=== PATIENT | female | born 1950 | race Caucasian/White ===

== ENCOUNTER → 2019-10-28 11:08 | Outpatient (CLI) | payer MEDICARE, SELFPAY ==
--- NOTE | ~2019-10-28 | CT_ITS ---
EXAMINATION: CT lumbar spine wo [facility] EXAM DATE: 10/28/2019 11:37 INDICATION: Radiculopathy, lumbar region. States lifting injury 2 weeks ago. TECHNIQUE: Spiral CT of the lumbar spine was performed without contrast. Axial, coronal and sagittal images were reviewed. The dose-length product (DLP) for this examination was 768.02 mGy-cm. The e xposure was tailored according to patient size (auto mA exposure control), and iterative reconstructi on (ASIR) was used as additional dose reduction technique. Correlation is made to lumbar x-ray same d ate. FINDINGS: Correlating with a prior lumbar x-ray from 02/24/2019, there has been interval development o f a compression fracture at the inferior endplate of L3 with mild to moderate loss of this vertebral body height centrally. There is mild sclerosis of the fracture line, it appears to be subacute. Verte bral body heights are otherwise maintained. There is moderate to severe loss of the L5-S1 disc height , moderate at L4-5 and mild to moderate at L3-4. Mild upper lumbar disc disease. No spondylolysis. Th ere is 3 mm anterolisthesis L3 on L4. The vertebral bodies are otherwise aligned. Paraspinal soft t issue is unremarkable. Sacral nerve stimulator entering on the left. Level by level evaluation: T12-L1: Disc does not extend beyond the endplate margin. Facet arthropathy: Mild. Neural foraminal stenosis: No stenosis. Central canal stenosis: No stenosis. L1-L2: There is a mild diffuse disc bulge. Facet arthropathy: Mild. Neural foraminal stenosis: Mild bilateral. Central canal stenosis: Mild. L2-L3: There is a moderate diffuse disc bulge. Facet arthropathy: Moderate. Neural foraminal stenosis: Mild to moderate left, mild right. Central canal stenosis: Moderate. L3-L4: There is a moderate diffuse disc bulge. Facet arthropathy: Severe . Ligamentum flavum enlargement. Neural foraminal stenosis: Moderate bilateral. Central canal stenosis: Moderate to severe. L4-L5: There is a moderate diffuse disc bulge. Facet arthropathy: Severe. Neural foraminal stenosis: Moderate to severe left, moderate right. Central canal stenosis: Moderate. L5-S1: There is a mild to moderate diffuse disc bulge. Facet arthropathy: Severe left, moderate to severe right. Neural foraminal stenosis: Moderate to severe bilateral. Central canal stenosis: Mild. IMPRESSION: 1. L3 subacute appearing mild to moderate compression fracture. 2. L3-4 grade 1 anterolisthesis, moderate to severe central canal stenosis. 3. L5-S1 moderate to severe neural foraminal stenosis. 4. Lesser spondylosis above. Reviewed, dictated and finalized at location B. COMPOSITOR
--- NOTE | ~2019-10-28 | XR_ITS ---
EXAMINATION: XR lumbar spine 6V w bending EXAM DATE: 10/28/2019 11:37 INDICATION: States lumbar radiculopathy. Injury 2 weeks ago. TECHNIQUE: Lumber spine frontal, lateral, bilateral oblique projections. Coned down frontal and lat eral L5-S1 lumbar projections for interpretation. Additional lateral flexion and lateral extension p rojections obtained. Comparison is made to prior examination from 02/24/2019. FINDINGS: Interval development of mild to moderate compression fracture inferior endplate of L3. Ther e is 3 mm anterolisthesis at this level on all the lateral projections. There is moderate to severe l oss of the L5-S1 disc height, moderate at L4-5 and mild to moderate at L3-4. There is advanced mid an d lower lumbar facet arthropathy. There is a sacral nerve stimulator. There are cholecystectomy clips . No spondylolysis. IMPRESSION: 1. Interval development of mild L3 compression fracture. 2. L3-4 grade 1 anterolisthesis. 3. Advanced arthropathy. Reviewed, dictated and finalized at location B. KER HAND
== END ==
PROVIDERS: Visit Provider Physician Assistant Medical
DX: M54.16 Radiculopathy, lumbar region (principal)
CPT/HCPCS: 72114; 72131

== ENCOUNTER 2019-10-28 14:50 | Emergency (ER) | payer MEDICARE, SELFPAY ==
[2019-10-28 15:02] VITALS: BP 100/68; PULSE 84; RESP 16; TEMP 36.9; O2SAT 100
--- NOTE | 2019-10-28 15:26 | PC.NURSE ---
1518 vegetable cutter at bedside to suture.
--- NOTE | 2019-10-28 15:32 | ED.WOUNDLAC ---
HPI - Wound/Laceration General Chief Complaint: Wound/Laceration Stated Complaint: Laceration on finger Time Seen by Provider: 10/28/19 15:17 Source: patient and family Mode of arrival: ambulatory Limitations: no limitations History of Present Illness HPI narrative: Patient presents today with lacerations to her left third and fourth fingers. She cut her hand with a kitchen knife while cutting onions at home just prior to arrival. Reports some tingling and throbbing in her fingers. She currently rates her pain 5/10. She has tried no iafz-vfj-obkfrsm interventions prior to arrival. Related Data Home Medications Medication Instructions Recorded Confirmed Calcium with Vitamin D 10/28/19 PreserVision AREDS-2 10/28/19 Vitamin C 10/28/19 bupropion HCl mg PO 10/28/19 divalproex PO 10/28/19 gabapentin 10/28/19 levothyroxine 10/28/19 lisinopril 10/28/19 mecobalamin (vitamin B12) 10/28/19 multivitamin 10/28/19 quetiapine 10/28/19 10/28/19 Allergies Allergy/AdvReac Type Severity Reaction Status Date / Time NSAIDS (Non-Steroidal AdvReac Other Verified 10/28/19 15:27 Anti-Inflamma Review of Systems Review of Systems: Narrative: CONSTITUTIONAL: Denies body aches, fever, chills, or sweats. EYES: Denies visual changes, redness, or discharge. ENT: Denies rhinorrhea, congestion, sore throat, or otalgia. CARDIOVASCULAR: Denies chest pain, palpitations, or edema. RESPIRATORY: Denies cough or dyspnea. GASTROINTESTINAL: Denies abdominal pain, nausea, vomiting, or diarrhea. GENITOURINARY: Denies dysuria or hematuria. SKIN: Denies rash, itching. + Finger lacerations MUSCULOSKELETAL: Denies back pain, joint pain, or myalgia. NEUROLOGIC: Denies headache, numbness, tingling, or weakness. PSYCH: Denies depression or anxiety. [facility] Past Medical History Medical History (Updated 10/28/19 @ 15:38 by Telma Gramajo, NÉSTOR, BC) History of diabetes mellitus Hypertension Surgical History Surgical History (Updated 10/28/19 @ 15:38 by Telma Gramajo, NÉSTOR, BC) History of gastric bypass Family History Family History (Updated 12/08/17 @ 10:03 by DOCTOR UNKNOWN) Father Diabetes mellitus Mother Hypertension Family history of elevated blood lipids Social History Social History Smoking status: Former smoker Smoking end date: 09/01/92 Alcohol intake: never Comments At time of signature, I have reviewed and agree with nursing past medical, surgical, social and family history unless otherwise noted. Please see nursing chart for further information. There is no relevant family history pertinent to the presenting complaint Exam Narrative: Exam Narrative: GENERAL: Well-appearing, well-nourished, and in no acute distress. HEAD: Normocephalic, atraumatic. EYES: EOMI. No redness or drainage. Conjunctivae normal. ENT: Mucous membranes pink and moist. NECK: Normal AROM. CHEST: No respiratory distress. EXTREMITIES: Left hand: 0.5 cm full-thickness linear laceration to the left third PIP, volar aspect. Distal sensation intact. Capillary refill normal. Full AROM against resistance. 1 cm full-thickness linear laceration to the fourth PIP, volar aspect. Distal sensation intact. Capillary refill normal. Full AROM against resistance. No active bleeding. SKIN: Warm, dry, no rash. NEURO: No focal deficits. Alert and oriented x3. Gait steady. PSYCH: Normal affect. No signs of depression or anxiety. Course Vital Signs Vital signs: Vital Signs Temperature 98.4 F 10/28/19 15:02 Pulse Rate 84 10/28/19 15:02 Respiratory Rate 16 10/28/19 15:02 Blood Pressure 100/68 10/28/19 15:02 Pulse Oximetry 100 10/28/19 15:02 Temperature 98.4 F 10/28/19 15:02 Pulse Rate 84 10/28/19 15:02 Respiratory Rate 16 10/28/19 15:02 Blood Pressure 100/68 10/28/19 15:02 Pulse Oximetry 100 10/28/19 15:02 Reviewed Procedures Laceration Laceration 1: D
== END 2019-10-28 15:42 | disposition home or self-care (01) ==
PROVIDERS: Emergency Provider Nurse Practitioner; PCP Family Medicine
DX: S61.215A Laceration without foreign body of left ring finger without damage to nail, initial encounter (principal); W26.0XXA Contact with knife, initial encounter; Z87.891 Personal history of nicotine dependence; E11.9 Type 2 diabetes mellitus without complications; I10 Essential (primary) hypertension
CPT/HCPCS: 12001; 99212; G0463

== ENCOUNTER 2020-01-03 14:00 | Outpatient (CLI) | payer MEDICARE, SELFPAY ==
--- NOTE | ~2020-01-03 | XR_ITS ---
EXAMINATION: XR sacrum coccyx min 2V EXAM DATE: 01/03/2020 14:22 INDICATION: Overactive bladder. TECHNIQUE: Frontal and lateral projections of the sacrum. Steep frontal projection of sacrum. Corre lation was made with pelvic x-ray 05/20/2019. FINDINGS: There is been interval insertion of a sacral neural stimulator device, likely entering at S3-4 on the left side. There is moderate disc disease L4-5 and L5-S1. There is mild to moderate sacro iliac and hip primary osteoarthritis. Calcifications in the pelvis are believed to be phleboliths. Th ere are no acute fractures identified. IMPRESSION: 1. Sacral neural stimulator overlies expected position. 2. Hip, sacroiliac osteoarthritis. Reviewed, dictated and finalized at location A.
== END 2020-01-03 14:01 | disposition home or self-care (01) ==
PROVIDERS: PCP Family Medicine; Visit Provider Urology
DX: N32.81 Overactive bladder (principal); M16.0 Bilateral primary osteoarthritis of hip; Z96.0 Presence of urogenital implants
CPT/HCPCS: 72220

== ENCOUNTER 2020-01-17 07:07 | Outpatient (CLI) | payer MEDICARE, SELFPAY ==
--- NOTE | ~2020-01-17 | XR_ITS ---
XR sacrum coccyx min 2V DATE: 01/17/2020 07:30 INDICATION: Overactive bladder. Device placement. TECHNIQUE: 3 views COMPARISON: 01/03/2020 sacrum coccyx FINDINGS: Again noted is a right-sided neurostimulator device overlying the right upper buttock area, with lead extending posteroanteriorly through a left sacral neural foramen. No fracture or bone destruction of the sacrum or coccyx is evident. There is degenerative disc disease of moderate degree at L3-4 with suggestion of grade 1 anterolisthe sis r There is moderately severe degenerative disease at L4-5 and severe degenerative disease at L5-S1. The sacroiliac joints are intact. IMPRESSION: Sacral neural stimulator device on the right, with left sacral neural foraminal lead Multilevel degenerative disc disease of the lumbar and lumbosacral spine Reviewed, dictated and finalized at location A. IMPRESSION: Sacral neural stimulator device on the right, with left sacral neur al foraminal lead Multilevel degenerative disc disease of the lumbar and lumbosacral spine
== END 2020-01-17 07:08 | disposition home or self-care (01) ==
LOC: ANHIMG 07:09
PROVIDERS: PCP Family Medicine; Visit Provider Urology
DX: N32.81 Overactive bladder (principal); M51.36 Other intervertebral disc degeneration, lumbar region; Z96.82 Presence of neurostimulator
CPT/HCPCS: 72220

== ENCOUNTER 2020-02-04 15:48 | Outpatient (CLI) | payer MEDICARE, SELFPAY ==
--- NOTE | ~2020-02-04 | US_ITS ---
US venous doppler [facility] DATE: 02/04/2020 16:17 INDICATION: Localized edema of the left lower extremity TECHNIQUE: Real-time and color flow imaging and Doppler analysis of the veins of the left lower extre mity COMPARISON: 06/04/2016 venous duplex examination of both lower extremities FINDINGS: The left greater saphenous vein is patent. There is spontaneous and phasic flow and normal augmentation and color flow signal and normal compression of the left common femoral, femoral and pop liteal veins. The peroneal and posterior calf veins are not well demonstrated. There is an approximately 12 x 35 x 27 mm left popliteal cyst. IMPRESSION: Limited examination; the peroneal and posterior tibial veins are not well demonstrated. O therwise no evidence of deep venous thrombosis Left popliteal cyst Reviewed, dictated and finalized at Location A. Reviewed, dictated and finalized at location A. IMPRESSION: Limited examination; the peroneal and posterior tibial veins are no t well demonstrated. Otherwise no evidence of deep venous thrombosis Left popliteal cyst
== END 2020-02-04 15:49 | disposition home or self-care (01) ==
PROVIDERS: PCP Family Medicine; Visit Provider Family Medicine
DX: M79.89 Other specified soft tissue disorders (principal); M71.22 Synovial cyst of popliteal space [Baker], left knee
CPT/HCPCS: 93971

== ENCOUNTER 2020-02-24 15:04 | Outpatient (CLI) | payer MEDICARE, SELFPAY ==
--- NOTE | ~2020-02-24 | MM_ITS ---
EXAMINATION: MM screening rodriguez BI w mir HISTORY: Screening mammogram TECHNIQUE: Craniocaudal and mediolateral oblique 3-D tomosynthesis images were obtained and synthetic 2-D images were generated. CAD analysis was submitted and interpreted. COMPARISON: 02/19/2019, 02/16/2018, 12/09/2016 bilateral digital screening mammogram examinations BREAST PARENCHYMAL COMPOSITION: There are scattered areas of fibroglandular density. FINDINGS: There is no evidence of suspicious mass, calcification, or architectural distortion to sugg est malignancy in either breast. There has been no suspicious interval change. IMPRESSION: 1. No mammographic evidence of malignancy. 2. Recommend routine screening mammography in one year. BI-RADS Category 1: Negative Reviewed, dictated and finalized at location A.
--- NOTE | ~2020-02-24 | CT_ITS ---
EXAMINATION: CT thoracic spine wo con EXAM DATE: 02/24/2020 16:04 INDICATION: Thoracic radiculopathy. TECHNIQUE: Spiral CT thoracic spine wo con was performed without contrast. Axial, coronal and sagit cheng images were reviewed. The dose-length product (DLP) for this examination was 416.99 mGy-cm. The exposure was tailored according to patient size (auto mA exposure control), and iterative reconstruc tion (ASIR) was used as additional dose reduction technique. There is no prior study for comparison. FINDINGS: Gastroesophageal junction surgical changes. Mild to moderate loss of the midthoracic disc h eights. Small to moderate-sized mid and lower thoracic endplate osteophytes. Vertebral body heights r elatively well-maintained. Mild mid thoracic kyphosis. No endplate erosive change. The vertebral bodi es are aligned in the AP dimension. Lower cervical fusion hardware. Mild to moderate bilateral neural foraminal stenosis at T8-9 and T9-10. Central canal appears widely patent. Mild to moderate thoracic facet arthropathy. IMPRESSION: Mild to moderate thoracic spondylosis. No acute findings. Reviewed, dictated and finalized at location B.
== END 2020-02-24 15:05 | disposition home or self-care (01) ==
PROVIDERS: PCP Family Medicine; Referring Provider Family Medicine; Visit Provider Nurse Practitioner Adult Health
DX: Z12.31 Encounter for screening mammogram for malignant neoplasm of breast (principal); M47.24 Other spondylosis with radiculopathy, thoracic region
CPT/HCPCS: 72128; 77063; 77067

== ENCOUNTER 2020-03-03 11:55 | Emergency (ER) | payer MEDICARE, SELFPAY ==
[2020-03-03 12:04] VITALS: BP 104/61; PULSE 59; RESP 16; TEMP 37.1; O2SAT 98
--- NOTE | 2020-03-03 12:23 | ED.GENADULT ---
HPI - General Adult General Chief complaint: Ear Stated complaint: Eaar/Nose/Throat Time Seen by Provider: 03/03/20 12:23 Source: patient and RN notes reviewed Mode of arrival: ambulatory Limitations: no limitations History of Present Illness HPI narrative: 69-year-old female complains of bilateral otalgia, pressure, and clogged feeling for 1 day. Palma says she cleaned bilateral ears with a Q-tip on 03/02/20 and noticed bloody drainage from [id number] out RT ear none from LT. Tylenol and Ibuprofen with some relief. Denies tinnitus, itching, or decrease hearing. History of Allergies, currently taking Zyretc daily. No facial swelling. Intermittent rhinorrhea and nasal congestion. No high fevers, sore throat, drooling, neck or throat swelling. No chest pain or shortness of breath. Denies vomiting and abdominal pain. Tolerating liquids well. LMP postmenopausal. Remains active. The patient reports she have not been diagnosed with COVID-19. The patient reports she is not waiting for the results of a COVID-19 lab test. The patient reports she do not have fever, chills, weakness, fatigue, myalgia, or facial swelling. The patient reports she do not have a new or worsening cough or shortness of breath. Denies chest pain. The patient reports she do not have any sore throat, nausea, and diarrhea. Denies recent traveling. Denies concerns for COVID-19 or exposures been home with limited outdoor exposure except for essential household needs and return home. At this time, patient is not suspected of having COVID-19. Some parts of this dictation were generated by voice recognition software and may contain typographical and/or grammatical inaccuracies. Related Data Home Medications Medication Instructions Recorded Confirmed calcium 600 mg-D3 800 unit-mag11 1 tablet PO DAILY 11/02/19 02/10/20 50 nm-rbez-nsufgn-jb-s.borat tablet cetirizine 10 mg tablet 10 mg PO DAILY tablet 11/02/19 02/10/20 clonazepam 0.5 mg tablet 0.5 mg PO TID tablet 11/02/19 02/10/20 ibuprofen 600 mg tablet 600 mg PO TID PRN 11/02/19 02/10/20 meclizine 25 mg tablet 25 mg PO BID PRN 11/02/19 02/10/20 vit C 250 mg-E 200 unit-zinc 40 1 tablet PO BID 11/02/19 02/10/20 mg-copper 1 ih-xgyibn-fjlbak capsule aripiprazole 5 mg tablet 5 mg PO DAILY 01/19/20 02/10/20 divalproex 500 mg tablet,extended 500 mg PO TID tablet 01/19/20 02/10/20 release 24 hr oxybutynin chloride 10 mg 10 mg PO DAILY 01/19/20 02/10/20 tablet,extended release 24 hr duloxetine mg PO 03/03/20 Allergies Allergy/AdvReac Type Severity Reaction Status Date / Time NSAIDS (Non-Steroidal AdvReac Other Verified 02/04/20 14:36 Anti-Inflamma Review of Systems Review of Systems: Narrative: CONSTITUTIONAL: Denies fever, chills, sweats. EYES: Denies visual changes, redness, discharge. ENT: Complains of rhinorrhea, congestion, bilateral bilateral otalgia, pressure, RT blood drainage (subsided), and clogged feeling. Denies sore throat. CARDIOVASCULAR: Denies chest pain, palpitations, edema. RESPIRATORY: Denies dyspnea, wheezing, cough. GASTROINTESTINAL: Denies abdominal pain, nausea, vomiting, diarrhea. GENITOURINARY: Denies dysuria, hematuria, abnormal discharge. SKIN: Denies rash or itching. MUSCULOSKELETAL: Denies acute back pain, joint pain, or myalgia. NEUROLOGIC: Denies numbness or focal weakness. PSYCHIATRIC: Denies anxiety or depression. All systems reviewed & are unremarkable except as noted in HPI and below. [facility] Past Medical History Medical History (Updated 03/04/20 @ 00:00 by Background Daemon) Abnormal colonoscopy 7.16.19: polyps/ repeat in 5 years Allergic rhinitis Bipolar disorder, current episode depressed, mild Chronic bilateral low back pain with sciatica Chronic or old strain of lumbosacral spine Cystocele Degeneration of cervical intervertebral disc Diverticulosis Hypothyroid Mild persistent asthma, uncomplicated Mixed hyperlipidemia Nicotine dependence,
== END 2020-03-03 12:56 | disposition home or self-care (01) ==
PROVIDERS: Emergency Provider Nurse Practitioner Family; PCP Family Medicine
DX: H74.8X1 Other specified disorders of right middle ear and mastoid (principal); J01.90 Acute sinusitis, unspecified; J00 Acute nasopharyngitis [common cold]; E78.00 Pure hypercholesterolemia, unspecified; I10 Essential (primary) hypertension; E11.9 Type 2 diabetes mellitus without complications; Z98.84 Bariatric surgery status
CPT/HCPCS: 99213; G0463

== ENCOUNTER → 2020-06-12 12:56 | Outpatient (CLI) | payer MEDICARE, SELFPAY ==
--- NOTE | ~2020-06-12 | US_ITS ---
EXAMINATION: US thyroid DATE: 06/12/2020 13:15 INDICATION: Nontoxic single thyroid nodule TECHNIQUE: Multiple ultrasound images of the thyroid were obtained. COMPARISON: 06/07/2019 FINDINGS: The right thyroid lobe measures 4.9 x 2.0 x 1.8 cm. The left thyroid lobe measures 4.6 x 1.7 x 1.5 c m. No significant interval change in a 1.3 cm wider than tall solid isoechoic nodule with smooth mar gins and without echogenic foci in the mid left thyroid. (TI-RADS 3, mildly suspicious , FNA if >=2.5 cm, annual followup is >1.5 cm). There is a second wider than tall solid isoechoic nodule with ghislaine h margins and without echogenic foci at the inferolateral left thyroid lobe, also TI-RADS 3. No signi ficant interval change in a 10 mm solid slightly hypoechoic wider than tall nodule with smooth margin s at the deep right thyroid lobe. (TI-RADS 4, moderately suspicious , FNA if >=1.5 cm, annual followu p is >1 cm). Subtle 1.3 cm wider than tall isoechoic solid nodule with indistinct margins and without echogenic foci in the mid right thyroid, TI-RADS 3. There is normal echotexture, echogenicity and va scular flow throughout the thyroid gland. IMPRESSION: 1. A few small bilateral TI RADS 3 and TI RADS 4 nodules, none meeting size criteria for biopsy. Alexx mmend repeat one-year follow-up ultrasound based upon the 1 cm TI RADS 4 nodule. Reviewed, dictated and finalized at location B. IMPRESSION: 1. A few small bilateral TI RADS 3 and TI RADS 4 nodules, none meeting size cri teria for biopsy. Recommend repeat one-year follow-up ultrasound based upon the 1 cm TI RADS 4 nodule.
== END ==
PROVIDERS: PCP Family Medicine; Visit Provider Family Medicine
DX: E04.1 Nontoxic single thyroid nodule (principal)
CPT/HCPCS: 76536

== ENCOUNTER 2020-07-03 12:03 | Outpatient (CLI) | payer MEDICARE, SELFPAY ==
[2020-07-03 13:02] LABS: Basophils Absolute Auto 0.1 K/mm3 (0.0-0.1); Basophils Percent Auto 1.2 % (0.2-1.2); Eosinophils Absolute Auto 0.3 K/mm3 (0-0.3); Eosinophils Percent Auto 5.9 % (0-4.4); Hematocrit 41.4 % (37.0-47.0); Immature Granulocyte Absolute 0.01 K/mm3 (0.00-0.031); Immature Granulocyte Percent A 0.2 % (0-0.5); Lymphocytes Absolute Auto 2.05 K/mm3 (0.9-3.2); Lymphocytes Percent Auto 35.5 % (18.3-44.2); Mean Corpuscular HGB Conc 33.8 g/dl (32-36); Mean Corpuscular Hemoglobin 30.9 pg (26-34); Mean Corpuscular Volume 91.4 fl (80-100); Mean Platelet Volume 9.6 fl (7.4-10.4); Monocytes Absolute Auto 0.4 K/mm3 (0.1-0.6); Monocytes Percent Auto 6.7 % (2.6-8.5); Neutrophils Absolute Auto 2.9 K/mm3 (1.3-6.7); Neutrophils Percent Auto 50.5 % (45.5-73.1); Platelet Count Result 214 k/mm3 (150-375); Red Blood Count 4.53 M/mm3 (4.2-5.4); Red Cell Distribution Width 14.6 % (11.5-14.5); White Blood Count 5.8 K/mm3 (4.5-10.0)
[2020-07-03 13:05] LABS: Add Urine Microscopic? YES; Appearance Urine Clear (Clear); Bilirubin Urine Negative (Negative); Blood Urine Negative (Negative); Color Urine Straw (Yellow); Glucose Urine UA Negative (Negative); Ketones Urine Negative (Negative); Leukocyte Esterase Ur Negative LEU/UL (Negative); Nitrate Urine Negative (Negative); Protein Urine Negative (Negative); RBC Urine 0-2 /hpf (0-2); Specific Grav Ur 1.009 (1.001-1.035); Urobilinogen Urine Negative mg/dL (<2.0); WBC Urine 0-3 /hpf
[2020-07-03 13:13] LABS: Anion Gap 1 mmol/L (8-16); Blood Urea Nitrogen 17 mg/dL (7-17); Calcium 9.6 mg/dL (8.4-10.2); Carbon Dioxide 38 mmol/L (22-30); Chloride 99 mmol/L (98-107); Creatine Kinase 39 U/L (30-135); Estimated Glomerular Filt Rate > 60; Glucose 89 mg/dL (65-105); Sodium 138 mmol/L (137-145)
--- NOTE | 2020-07-03 13:23 | ECG_ITS ---
Measurements Intervals [place] Rate: 57 P: 59 [place]: 171 QRS: -5 QRSD: 85 T: 11 QT: 422 QTc: 412 Interpretive Statements SINUS BRADYCARDIA BASELINE ARTIFACT- II, III, AVR, AVL, AVF BORDERLINE ECG Electronically Signed On 07-03-2020 13:37:28 [employer] by Selvin Carson D.O.
[2020-07-03 13:33] LABS: Erythrocyte Sedimentation Rate 5 mm/hr (0-20)
== END 2020-07-03 12:04 | disposition home or self-care (01) ==
PROVIDERS: PCP Family Medicine; Visit Provider Nurse Practitioner Adult Health
DX: Z01.818 Encounter for other preprocedural examination (principal); R94.31 Abnormal electrocardiogram [ECG] [EKG]
CPT/HCPCS: 36415; 80048; 81001; 82550; 85025; 85652; 93005

== ENCOUNTER → 2020-11-29 12:58 | Outpatient (CLI) | payer MEDICARE, SELFPAY ==
--- NOTE | ~2020-11-29 | US_ITS ---
EXAMINATION: US thyroid EXAM DATE: 11/29/2020 13:13 INDICATION: E04.1 - Nontoxic single thyroid nodule. TECHNIQUE: Multiple grayscale and Doppler images of the thyroid were obtained (by a technologist who performed the scan) and subsequently reviewed. Individual nodules and recommendations may be reporte d in accordance with TI-RADS system as designated by the 2017 ACR White Paper TI-RADS committee. Comp arison is made to prior examination from 06/12/2020, 06/07/2019. FINDINGS: The right thyroid lobe measures 4.5 x 1.6 x 1.6 cm, the left measuring 4.6 x 1.7 x 1.7 cm. Relatively homogeneous thyroid echogenicity. There are several thyroid nodules. Largest left thyroid lobe nodule 1.2 x 0.9 x 1.0 cm, unchanged in size. Largest right thyroid lobe no dule measures 1.0 x 0.7 x 0.6 cm, also unchanged in size compared to 2019. IMPRESSION: Small thyroid nodules, stable. Most likely benign but recommend one-year follow-up ultras ound. Reviewed, dictated and finalized at location A. IMPRESSION: Small thyroid nodules, stable. Most likely benign but recommend one -year follow-up ultrasound.
== END ==
PROVIDERS: PCP Family Medicine; Visit Provider Physician Assistant Medical
DX: E04.2 Nontoxic multinodular goiter (principal)
CPT/HCPCS: 76536

== ENCOUNTER 2020-12-15 12:48 | Outpatient (CLI) | payer MEDICARE, SELFPAY ==
--- NOTE | 2020-12-15 13:29 | ECHO_ITS ---
Patient Info Name: Palma Freire Age: 70 years : 1950 Gender: Female Ht: 67 in Wt: 174 lbs BSA: 1.95 m2 HR: 76 bpm BP: 124 / 71 mmHg Technical Quality: Good Exam Date: 12/15/2020 1:33 PM Exam Location: [facility] Patient Status: Outpatient Admit Date: 12/15/2020 Staff Ordering Physician: Franklin Chilel PA-C Human Resource Analyst: Davis Contreras RDCS, RT Attending Provider: Franklin Chilel PA-C Referring Physician: Ranjana SUAZO; Exam Type: CA echo doppler color flow Study Info Indications R60.0 - Localized edema Complete two-dimensional, color flow and Doppler transthoracic echocardiogram is performed. Strain analysis performed. Summary 1. Complete two-dimensional, color flow and Doppler transthoracic echocardiogram is performed. 2. Left ventricular chamber dimension is mildly enlarged. 3. Left ventricular systolic function is normal, estimated at 60-65%. 4. The left ventricular diastolic function is grade I diastolic dysfunction. 5. E/e' 7 is not elevated. 6. Global longitudinal strain is normal at -20.6%. 7. Left atrial chamber dimension is mildly enlarged. 8. There is mild aortic valve sclerosis. 9. There is trace mitral valve regurgitation. 10. There is mild tricuspid valve regurgitation. 11. No pulmonary hypertension, estimated pulmonary arterial systolic pressure is 35 mmHg. 12. Small atheroma in anterior and posterior aortic root. 13. Dilated inferior vena cava with >50% collapse upon inspiration consistent with elevated right atrial pressure, 10 mmHg. Left Ventricle E/e' 7 is not elevated. Global longitudinal strain is normal at -20.6%. Left ventricular chamber dimension is mildly enlarged. Left ventricular systolic function is normal, estimated at 60-65%. The left ventricular diastolic function is grade I diastolic dysfunction. Right Ventricle Right ventricular chamber dimension is normal. Right ventricular systolic function is normal. Left Atria Left atrial chamber dimension is mildly enlarged. Right Atria Right atrial chamber dimension is normal. Aortic Valve The aortic valve is trileaflet. There is mild aortic valve sclerosis. There is no aortic valve stenosis. There is no aortic valve regurgitation. Pulmonic Valve There is no pulmonic regurgitation. Mitral Valve There is no mitral valve stenosis. There is trace mitral valve regurgitation. Tricuspid Valve There is mild tricuspid valve regurgitation. No pulmonary hypertension, estimated pulmonary arterial systolic pressure is 35 mmHg. Pericardium/Pleural There is no pericardial effusion. Inferior Vena Cava Dilated inferior vena cava with >50% collapse upon inspiration consistent with elevated right atrial pressure, 10 mmHg. Aorta Small atheroma in anterior and posterior aortic root. The aortic root size at the sinus of Valsalva is normal. Left Ventricular Outflow Tract Name Value Normal LVOT 2D LVOT Diameter 2.1 cm LVOT Doppler LVOT Peak Gradient 3 mmHg LVOT Mean Gradient 2 mmHg LVOT VTI 22 cm
== END 2020-12-15 12:49 | disposition home or self-care (01) ==
PROVIDERS: PCP Family Medicine; Visit Provider Physician Assistant Medical
DX: R60.9 Edema, unspecified (principal); I36.1 Nonrheumatic tricuspid (valve) insufficiency; I35.1 Nonrheumatic aortic (valve) insufficiency
CPT/HCPCS: 93306

== ENCOUNTER → 2021-01-22 17:50 | Outpatient (CLI) | payer MEDICARE, SELFPAY ==
--- NOTE | ~2021-01-22 | DEXA_ITS ---
Bone Density Report Name: Palma Freire Age: 70 Sex: Female Ethnicity: White Date of : 1950 Indication: postmenopausal; screening for osteoporosis; height loss; prior fracture; hysterectomy; Referring Provider: NATHAN ALAN Study: Bone densitometry was performed. Exam Date: January 22, 2021 Accession number: [id number] Bone Density: Region BMD T-score Z-score Classification AP Spine (L1, L2, L4) 0.982 -0.5 1.5 Normal Femoral Neck (Left) 0.653 -1.8 -0.1 Osteopenia Total Hip (Left) 0.744 -1.6 -0.2 Osteopenia Femoral Neck (Right) 0.606 -2.2 -0.5 Osteopenia Total Hip (Right) 0.683 -2.1 -0.7 Osteopenia Total Hip Mean 0.714 -1.9 -0.5 Osteopenia World Health Organization criteria for BMD impression classify patients as: Normal (T-score at or above -1.0), Osteopenia (T-score between -1.0 and -2.5), or Osteoporosis (T-score at or below -2.5). 10-year Fracture Risk: FRAX not reported because: Prior hip or vertebral fracture Previous Exams: Region Exam Age BMD T-score BMD Change BMD Change Date g/cm2 vs Baseline vs Previous AP Spine(L1, L2, L4) 01/22/2021 70 0.982 -0.5 -0.065 -0.078* 07/21/2018 67 1.060 0.2 0.012 -0.135* 07/12/2013 62 1.195 1.5 0.147 0.140* 06/10/2009 58 1.055 0.2 0.007 0.007 07/14/2006 55 1.047 0.1 Total Hip(Left) 01/22/2021 70 0.744 -1.6 -0.146 -0.214* 07/21/2018 67 0.958 0.1 0.068 -0.145* 07/12/2013 62 1.103 1.3 0.214 0.175* 06/10/2009 58 0.928 -0.1 0.038 0.038 07/14/2006 55 0.890 -0.4 Total Hip(Right) 01/22/2021 70 0.683 -2.1 -0.217 -0.290* 07/21/2018 67 0.973 0.3 0.073 -0.039* 07/12/2013 62 1.012 0.6 0.112 0.058* 06/10/2009 58 0.954 0.1 0.054 0.054 07/14/2006 55 0.900 -0.3 *Denotes significance at 95% confidence level, LSC for AP Spine = 0.022 g/cm2, LSC for Total Hip = 0.027 g/cm2 Clinical Information Provided by Patient: Have had a previous hip or vertebral fracture Has had a low trauma fracture Has used the following medications: Vitamin D, Calcium, MTV, Levothyroxine Has the following medical conditions: Hysterectomy Patient maximum height was 70.5 Menopause Age: 57 No regular weight bearing exercise Drinks caffeinated beverages Onset of menses at age 16 Number of children 3 -------
== END ==
PROVIDERS: Visit Provider Family Medicine
DX: Z78.0 Asymptomatic menopausal state (principal); M85.851 Other specified disorders of bone density and structure, right thigh; M85.852 Other specified disorders of bone density and structure, left thigh
CPT/HCPCS: 77080

== ENCOUNTER → 2021-02-26 12:58 | Outpatient (CLI) | payer MEDICARE, SELFPAY ==
--- NOTE | ~2021-02-26 | MM_ITS ---
EXAMINATION: MM screening [facility] BI w mir HISTORY: Screening TECHNIQUE: Craniocaudal and mediolateral oblique 3-D tomosynthesis images were obtained and synthetic 2-D images were generated. CAD analysis was submitted and interpreted. COMPARISON: Comparison to multiple prior studies sequentially, with oldest reviewed study dated 07/02. BREAST PARENCHYMAL COMPOSITION: There are scattered areas of fibroglandular density. FINDINGS: There is no evidence of suspicious mass, calcification, or architectural distortion to sugg est malignancy in either breast. There has been no suspicious interval change. IMPRESSION: 1. No mammographic evidence of malignancy. 2. Recommend routine screening mammography in one year. BI-RADS Category 1: Negative Reviewed, dictated and finalized at location A.
== END ==
PROVIDERS: Visit Provider Family Medicine
DX: Z12.31 Encounter for screening mammogram for malignant neoplasm of breast (principal)
CPT/HCPCS: 77063; 77067

== ENCOUNTER 2021-03-14 17:33 | Outpatient (CLI) | payer MEDICARE, SELFPAY ==
--- NOTE | ~2021-03-14 | CT_ITS ---
EXAMINATION: CT brain wo con DATE: 03/14/2021 18:35 INDICATION: Fall with loss of consciousness. TECHNIQUE: Computed tomography (CT) of the head was performed without intravenous contrast. Sagittal and coronal reconstructions were performed. The mA was adjusted according to patient size. Iterative reconstruction technique was employed. The dose-length product was 605.33 mGy-cm. COMPARISON: head CT dated 06/01/2019 FINDINGS: No fracture. Unchanged small region of encephalomalacia in the right subinsular white matter consiste nt with chronic lacunar infarct. No acute intracranial hemorrhage, acute infarction or abnormal extra axial fluid collection. Ventricles are normal and symmetric. No mass/mass effect. There is an empty sella . Changes of bilateral intraocular lens replacement. The orbits, paranasal sinuses and mastoid air cells are normal. Intracranial calcified cerebral atherosclerosis is noted. IMPRESSION: 1. No fracture or acute intracranial process. 2. Small old lacunar infarct in the right subinsular white matter. 3. Empty sella Reviewed, dictated and finalized at location A.
--- NOTE | ~2021-03-14 | XR_ITS ---
EXAMINATION: XR ribs LT 2V w CXR 2V DATE: 03/14/2021 18:10 INDICATION: Left rib pain post fall TECHNIQUE: AP and lateral views of the chest and 3 views of the left ribs were obtained. COMPARISON: Chest radiograph dated 10/21/2018 FINDINGS: No rib fractures identified. Unchanged mild linear discoid atelectasis/scarring at the lateral left l ower lung zone. Lungs are otherwise clear. No pulmonary edema, pleural effusion or pneumothorax. Card iomediastinal silhouette is normal. Cholecystectomy clips in right upper quadrant. L3 vertebroplasty. Partially visualized plate and screw fixation for lower cervical anterior spinal fusion. There are c ouple spinal stimulator leads projecting over the central canal of the lower thoracic spine with dist al tips at the level of T9 and T10. Suture line in the epigastric region. Additional surgical clips p roject to the left of the L3 vertebral body. IMPRESSION: 1. No rib fracture or acute cardiopulmonary disease. Reviewed, dictated and finalized at location A.
[2021-03-14 17:55] LABS: Eosinophils Absolute Auto 0.4 K/mm3 (0-0.3); Eosinophils Percent Auto 7.9 % (0-4.4); Hematocrit 28.7 % (37.0-47.0); Hemoglobin 9.2 g/dL (12.0-15.0); Immature Granulocyte Absolute 0.01 K/mm3 (0.00-0.031); Immature Granulocyte Percent A 0.2 % (0-0.5); Lymphocytes Absolute Auto 1.17 K/mm3 (0.9-3.2); Lymphocytes Percent Auto 24.2 % (18.3-44.2); Mean Corpuscular HGB Conc 32.1 g/dl (32-36); Mean Corpuscular Hemoglobin 30.1 pg (26-34); Mean Corpuscular Volume 93.8 fl (80-100); Mean Platelet Volume 8.9 fl (7.4-10.4); Monocytes Absolute Auto 0.4 K/mm3 (0.1-0.6); Monocytes Percent Auto 7.6 % (2.6-8.5); Neutrophils Absolute Auto 2.9 K/mm3 (1.3-6.7); Neutrophils Percent Auto 60.1 % (45.5-73.1); Platelet Count Result 254 k/mm3 (150-375); Red Blood Count 3.06 M/mm3 (4.2-5.4); Red Cell Distribution Width 14.6 % (11.5-14.5)
[2021-03-14 18:06] LABS: Alanine Aminotransferase 20 U/L (4-35); Albumin Level 3.8 g/dL (3.5-5.1); Alkaline Phosphatase 101 U/L (38-126); Anion Gap 3 mmol/L (8-16); Aspartate Amino Transferase 33 U/L (14-36); Bilirubin,Total 0.3 mg/dL (0.2-1.3); Blood Urea Nitrogen 14 mg/dL (7-17); Calcium 9.3 mg/dL (8.4-10.2); Carbon Dioxide 33 mmol/L (22-30); Chloride 104 mmol/L (98-107); Estimated Glomerular Filt Rate > 60; Glucose 85 mg/dL (65-105); Potassium 4.9 mmol/L (3.4-5.0); Sodium 140 mmol/L (137-145)
[2021-03-14 18:37] LABS: White Blood Count 4.8 K/mm3 (4.5-10.0)
== END 2021-03-14 17:34 | disposition home or self-care (01) ==
PROVIDERS: PCP Family Medicine; Visit Provider Physician Assistant Medical
DX: R42 Dizziness and giddiness (principal); E03.9 Hypothyroidism, unspecified; R55 Syncope and collapse; S06.0X9A Concussion with loss of consciousness of unspecified duration, initial encounter; R07.89 Other chest pain; X58.XXXA Exposure to other specified factors, initial encounter
CPT/HCPCS: 36415; 70450; 71046; 71100; 80053; 84443; 85025

== ENCOUNTER → 2021-06-20 12:49 | Outpatient (CLI) | payer MEDICARE, SELFPAY ==
--- NOTE | ~2021-06-20 | US_ITS ---
EXAMINATION: US thyroid DATE: 06/20/2021 13:06 INDICATION: Nontoxic single thyroid nodule. TECHNIQUE: Multiple ultrasound images of the thyroid were obtained. COMPARISON: Ultrasound 11/29/2020 FINDINGS: The right thyroid lobe measures 4.6 x 1.8 x 1.8 cm. The left thyroid lobe measures 4.4 x 1.7 x 1.6 c m. In the left thyroid lobe, there is a 10 mm solid, isoechoic, rzcwi-tuuy-gpxr nodule with smooth m argin without echogenic foci (TI-RADS TR3). In the left thyroid lobe, there is a 9 mm solid, isoechoi c, rbrsj-furx-bthh nodule with smooth margin without echogenic foci (TR3). In the right thyroid lobe, there is a 3 mm nodule. In the right thyroid lobe, there is a 9 mm solid, isoechoic, xbfig-njbh-rkze nodule with ill-defined margin without echogenic foci (TR3). IMPRESSION: 1. Small thyroid nodules, likely not clinically significant. No follow-up is needed. Reviewed, dictated and finalized at location A. IMPRESSION: 1. Small thyroid nodules, likely not clinically significant. No follow-up is ne eded.
== END ==
PROVIDERS: PCP Family Medicine; Visit Provider Family Medicine
DX: E04.1 Nontoxic single thyroid nodule (principal)
CPT/HCPCS: 76536

== ENCOUNTER 2021-07-04 07:52 | Outpatient (CLI) | payer MEDICARE, SELFPAY ==
--- NOTE | 2021-07-23 09:34 | WPDHOMESLEEP ---
Sleep Study - Home Unattended Date of Study: 07/04/21 Ordering Provider: Beatriz Barrios MD Interpreting Provider: Beatriz Barrios MD Home Sleep Study Type: Watch PAT Height: 1.69 m Weight: 81.193 kg Body Mass Index: 28.4 Neck Circumference (inches): 12.75 Boelus: 8 Reason for Sleep Study history of obstructive sleep apnea, now has lost weight Sleep History Palma Freire is a 70 year old female with a history of obstructive sleep apnea when she was 300 lb, now weighs around 180 after gastric bypass surgery a year ago. She does not awaken from sleep feeling short of breath. She does not awaken at night with heartburn, belching or coughing. She occasionally snores but never snores loudly enough that others complain about it. She does not have trouble sleeping with a cold and does not wake up gasping for breath at night. She does have breathing problems at night reported to her by others. She does not sweat excessively at night or notice her heart pounding or beating irregularly at night. She rarely falls asleep during the day, rarely falls asleep involuntarily. She does not in general fall asleep while driving. she does not have loss of muscle tone with strong emotion or daytime difficulties due to excessive sleepiness. She does not feel paralyzed on waking or falling asleep and does not have vivid dreamlike scenes upon awakening or falling asleep. She does not feel afraid to go to sleep. She does not have nightmares. She rarely remembers her dreams. She occasionally has racing thoughts. She frequently feels sad depressed and anxious. She rarely has muscular tension. She constantly is bothered by pain during the day, awakened by pain at night, wakes up feeling stiff in the morning with sore achy muscles and pain in the neck and spine. She has memory problems. She has bipolar disease and is managed by a psychiatrist and take Trazodone 50 mg at night to go to sleep. She has problems with nasal allergies and uses otgd-hiw-ctwqfiw Astelin and Zyrtec. Her normal sleep time is 3:00 a.m. to 4:00 a.m., she keeps his schedule because of her previous work schedule. She wakes up feeling refreshed. She is not tired in the day although she does feel sleepy most days. . She wakes once at night to urinate and is able to return to sleep in 1-3 minutes. She falls asleep quickly using trazodone but without it she is not able to initiate sleep easily. She wakes sometime between 11:00 a.m. and 2:30 p.m.. She feels better in the afternoon compared to other times of day. A short 10-15 minute nap may be refreshing but she does not nap often. Habits: Quit tobacco years ago. Caffeine 2 servings a day. No alcohol or recreational drugs. [facility] Past Medical History Medical History Abnormal colonoscopy 03.16.19: polyps/ repeat in 5 years Acute foreign body of right ear canal Allergic rhinitis At risk for fall due to comorbid condition Bipolar disorder, current episode depressed, mild Chronic bilateral low back pain with sciatica Chronic or old strain of lumbosacral spine Chronic otitis externa of right ear Cystocele Degeneration of cervical intervertebral disc Diverticulosis Foot drop, right Hypothyroid Mild intermittent asthma Mild persistent asthma, uncomplicated Mixed hyperlipidemia Nicotine dependence, unspecified, in remission Obstructive sleep apnea (~2011) Obstructive sleep apnea (adult) (pediatric) Other hemorrhoids Panniculitis Primary pulmonary hypertension 2020 echo normal. 11.4.16 echo normal. seen on echo 02.19.12 ( mild) Surgical History Surgical History Gastric bypass status for obesity History of cataract surgery bilateral History of gastric bypass History of thumb surgery RT X2 History of tonsillectomy History of total knee arthroplasty Bilateral, LT X2, and RT X1 with a revision Family History
[2021-07-23 09:49] VITALS: BMI 28.4
== END 2021-07-11 13:34 | disposition home or self-care (01) ==
LOC: ANHCSM 07:54
PROVIDERS: PCP Family Medicine; Visit Provider Internal Medicine Critical Care Medicine
DX: G47.10 Hypersomnia, unspecified (principal); R06.83 Snoring
CPT/HCPCS: 95800

== ENCOUNTER 2021-08-02 13:17 | Emergency (ER) | payer MEDICARE, SELFPAY ==
--- NOTE | ~2021-08-02 | XR_ITS ---
EXAMINATION: [id number]_CR EXAM DATE: 08/02/2021 14:24 INDICATION: Initial encounter following injury, with pain of the left ribs. TECHNIQUE: Frontal projection of the upper left ribs, frontal projection of the lower left ribs, obli que projection of the left ribs, frontal chest x-ray(s) for interpretation. There is no prior study for comparison. FINDINGS: There are no displaced acute left rib fractures identified. Consider educating patient stephanie t even if there is a radiographically occult nondisplaced rib fracture, there is no specific treatmen t other than to refrain from activity that prevents healing. There is no soft tissue abnormality seen. No confluent consolidation, pneumothorax or pleural effusio n suspected. There are cholecystectomy clips. Spine stimulator leads. Cervical fusion hardware. IMPRESSION: No displaced left rib fractures. Reviewed, dictated and finalized at location A. RAFT MAINTENANCE MANAGER
--- NOTE | ~2021-08-02 | XR_ITS ---
EXAMINATION: XR shoulder RT min 2V EXAM DATE: 08/02/2021 14:07 INDICATION: RT post shoulder pain radiates to ant side. fell last night. Initial encounter. TECHNIQUE: The following right shoulder projections obtained: frontal projection with internal rotati on, frontal projection with external rotation, Grashey, axillary and scapular Y view (4+ views). The re is no prior study for comparison. FINDINGS: No evidence of right shoulder rotator cuff calcific tendinosis. There is mild to moderate glenohumeral joint, moderate acromioclavicular joint primary osteoarthritis. There are no acute frac tures or dislocations identified. There is no subcutaneous gas. The soft tissue is unremarkable. There are no radiopaque foreign bodies. IMPRESSION: Right shoulder osteoarthritis. Reviewed, dictated and finalized at location A. ARDESS SUPERVISOR
--- NOTE | ~2021-08-02 | XR_ITS ---
EXAMINATION: XR lumbar spine min 4V, XR sacrum coccyx min 2V EXAM DATE: 08/02/2021 14:08 (accession [id number]), 08/02/2021 14:09 (accession [id number]) INDICATION: Lower back/tailbone pain. Fell last night landing on buttocks. Initial encounter. TECHNIQUE: Lumber spine frontal, lateral, bilateral oblique projections. Coned down frontal and lat eral L5-S1 lumbar projections for interpretation. Sacral frontal, inlet, lateral projections. Compare d to prior study from 10/28/2019 FINDINGS: Spine stimulator device. L3 compression fracture with methylmethacrylate injection. There i s moderate to severe lumbar facet arthropathy and L5-S1 disc disease. Moderate disc disease at L4-5, mild to moderate at the other lumbar levels. Bones are osteopenic. Please note that osteopenia limit s sensitivity for detecting fractures by radiographs. No acute lumbosacral fracture suspected. The ve rtebral bodies are aligned in the AP dimension. There is moderate bilateral hip primary osteoarthriti s. IMPRESSION: 1. No acute lumbosacral findings. 2. Degenerative in postoperative changes. Reviewed, dictated and finalized at location A. OR WEB DESIGNER IMPRESSION: 1. No acute lumbosacral findings. 2. Degenerative in postoperative changes.
--- NOTE | ~2021-08-02 | XR_ITS ---
XR ankle RT min 3V 08/02/2021 14:07 Indication: Right lateral ankle pain after fall Procedure: 4 views right ankle Comparison: 08/18/2015 Findings: No acute fracture, subluxation or dislocation. Ankle mortise intact. Talar dome is normal. There is a degenerative calcaneal enthesophyte at the plantar surface. Impression: 1: No acute fracture. Reviewed, dictated and finalized at location B. ING PRESS OPERATOR Impression: 1: No acute fracture.
[2021-08-02 13:30] VITALS: BP 122/88; PULSE 87; RESP 18; TEMP 36.7; O2SAT 98
--- NOTE | 2021-08-02 13:32 | ED.BACK ---
HPI - Back Pain/Injury General Chief Complaint: Fall Stated Complaint: Back Pain Time Seen by Provider: 08/02/21 13:32 Source: patient, RN notes reviewed and old records reviewed Mode of arrival: ambulatory Limitations: no limitations History of Present Illness HPI Narrative: 70-year-old female presents to the [facility] with complaints of back pain after falling backwards last night. States that she tripped and fell backwards. Pain to the coccyx, right shoulder, right ankle and left ribs. No bruising or swelling noted. Has full range of motion. Unsteady gait which patient states is her normal. No loss of bowel control. Patient states that she is normally incontinent of urine, no change. Denies hitting head, no loss of consciousness. Related Data Home Medications Medication Instructions Recorded Confirmed cetirizine 10 mg tablet 10 mg PO DAILY tablet 11/02/19 07/13/21 clonazepam 0.5 mg tablet 0.5 mg PO TID tablet 11/02/19 07/13/21 vit C 250 mg-vit E 90 mg-zinc 40 1 tablet PO BID 11/02/19 07/13/21 mg-copper 1 qt-gzjcwz-pnqaqj capsule oxybutynin chloride 10 mg 10 mg PO DAILY 01/19/20 07/13/21 tablet,extended release 24 hr duloxetine mg PO 03/03/20 07/13/21 acetaminophen 500 mg tablet 500 mg PO TID PRN tablet 04/27/20 07/13/21 lumateperone 42 mg capsule 42 mg PO DAILY 08/23/20 07/13/21 lamotrigine 100 mg tablet 100 mg PO DAILY 11/24/20 07/13/21 lurasidone 20 mg tablet 20 mg PO DAILY 01/05/21 07/13/21 meclizine 25 mg tablet 25 mg PO BID 01/05/21 07/13/21 nitrofurantoin 100 mg PO Q12H 07/13/21 07/13/21 monohydrate/macrocrystals 100 mg capsule ziprasidone HCl 20 mg capsule 20 mg PO BID 07/13/21 07/13/21 Allergies Allergy/AdvReac Type Severity Reaction Status Date / Time No Known Allergies Allergy Verified 07/13/21 10:19 Review of Systems Review of Systems: All systems reviewed & are unremarkable except as noted in HPI and below Constitutional: Constitutional: Reports no additional constitutional complaints, Denies chills and Denies fever(s) Eyes: Eyes: Reports no additional eye complaints, Denies change in vision and Denies photophobia ENT: Reports system reviewed and no additional complaints, except as documented and Denies sore throat Cardiovascular: Cardiovascular: Reports no additional cardiovascular complaints and Denies chest pain Respiratory: Respiratory: Reports no additional respiratory complaints, Denies chest congestion, Denies cough, Denies dyspnea and Denies wheezing Gastrointestinal: Gastrointestinal: Reports no additional gastrointestinal complaints, Denies abdominal pain, Denies diarrhea, Denies nausea and Denies vomiting Musculoskeletal: Musculoskeletal: Reports as per HPI, Reports back pain (Coccyx), Denies myalgias and Reports arthralgias Comments: Left lateral rib, right generalized shoulder, right generalized ankle Integumentary/Breasts: Skin/Breast: Reports system reviewed and no additional complaints, except as docu Neurologic: Reports system reviewed and no additional complaints, except as documented Psychiatric: Psychiatric: Reports no additional psychiatric complaints Allergic/Immunologic: Allergic/Immunologic: Reports no additional allergic/immunologic complaints [facility] Past Medical History Medical History (Updated 08/04/21 @ 14:52 by Cristela Parker) Abnormal colonoscopy 7.16.19: polyps/ repeat in 5 years Acute foreign body of right ear canal Allergic rhinitis At risk for fall due to comorbid condition Bipolar disorder, current episode depressed, mild Chronic bilateral low back pain with sciatica Chronic or old strain of lumbosacral spine Chronic otitis externa of right ear Cystocele Degeneration of cervical intervertebral disc Diverticulosis Foot drop, right Hypothyroid Mild intermittent asthma Mild persistent asthma, uncomplicated Mixed hyperlipidemia Nicotine dependence, unspecified, in remission Obstructive sleep apnea (adult) (pediatric) resolved with we
== END 2021-08-02 14:44 | disposition home or self-care (01) ==
PROVIDERS: Emergency Provider Nurse Practitioner; PCP Family Medicine
DX: S30.0XXA Contusion of lower back and pelvis, initial encounter (principal); S93.401A Sprain of unspecified ligament of right ankle, initial encounter; R07.81 Pleurodynia; M19.011 Primary osteoarthritis, right shoulder; E03.9 Hypothyroidism, unspecified; E78.2 Mixed hyperlipidemia; Z87.891 Personal history of nicotine dependence; W01.0XXA Fall on same level from slipping, tripping and stumbling without subsequent striking against object, initial encounter
CPT/HCPCS: 71101; 72110; 72220; 73030; 73610; 99213; G0463

== ENCOUNTER → 2021-09-25 14:11 | Outpatient (CLI) | payer MEDICARE, SELFPAY ==
--- NOTE | ~2021-09-25 | XR_ITS ---
XR lumbar spine 2-3V DATE: 09/25/2021 14:47 INDICATION: Low back pain. Lumbago. TECHNIQUE: AP, lateral, coned lateral lumbosacral views COMPARISON: 08/02/2021 lumbar spine FINDINGS: There is diffuse prominent osteopenia. Status post vertebroplasty at L3. Severe degenerative disc disease at L4-5 and L5-S1, increased in severity at L4-5 since 08/02/2021. Generator device overlies the left gluteal area with leads extending in the lower thoracic spinal can al Status post cholecystectomy. IMPRESSION: Severe degenerative disease at L4-5 and L5-S1, increased at L4-5 since 08/02/2021 Diffuse osteopenia Status post vertebroplasty at L3 Reviewed, dictated and finalized at location A. OSER TEACHING ARTIST IMPRESSION: Severe degenerative disease at L4-5 and L5-S1, increased at L4-5 si nce 08/02/2021 Diffuse osteopenia Status post vertebroplasty at L3
--- NOTE | ~2021-09-25 | XR_ITS ---
XR thoracic spine 2V DATE: 09/25/2021 14:47 INDICATION: Thoracic back pain, radiculopathy TECHNIQUE: AP, lateral, swimmer views COMPARISON: 02/24/2020 CT thoracic spine FINDINGS: There is diffuse osteopenia. There are postoperative changes from anterior cervical spine fusion at C6-7. Interbody spinal fusion is noted at C3-4. No fracture or dislocation or bone destruction. The thoracic pedicles are intact. No paraspinal soft tissue thickening is evident. There is degenerative spurring of the thoracic spine. Lower thoracic spinal leads are noted. Status post cholecystectomy. IMPRESSION: Diffuse osteopenia Degenerative spurring of the thoracic spine Reviewed, dictated and finalized at location A. BACKER
== END ==
PROVIDERS: PCP Family Medicine; Visit Provider Nurse Practitioner Adult Health
DX: M51.36 Other intervertebral disc degeneration, lumbar region (principal); M51.37 Other intervertebral disc degeneration, lumbosacral region; M85.88 Other specified disorders of bone density and structure, other site
CPT/HCPCS: 72070; 72100

== ENCOUNTER → 2021-10-17 10:16 | Outpatient (CLI) | payer MEDICARE, SELFPAY ==
--- NOTE | ~2021-10-17 | CT_ITS ---
EXAMINATION: CT soft tissue neck w con DATE: 10/17/2021 10:50 INDICATION: Localized enlarged lymph nodes. Left neck mass. TECHNIQUE: Computed tomography (CT) of the neck was performed with 75 mL Omnipaque-350 intravenous co ntrast. Automated exposure control and iterative reconstruction technique were employed. The dose-juanita gth product was 360.92 mGy-cm. COMPARISON: CT cervical spine 07/09/2019 FINDINGS: There are likely changes of ocular lens replacement surgeries. There is plaque in the proxi mal internal carotid arteries with 0% stenosis relative to normal distal artery lumen diameters. Ther e are no pathologically enlarged lymph nodes. There is a skin marker at left posterior neck. There is no abnormal mass in this area. There are changes of disc replacement at C3-C4. There are changes of anterior fusion procedure from C5 to C7. There is moderate cervical spondylosis. IMPRESSION: 1. No abnormal neck mass or lymphadenopathy. Reviewed, dictated and finalized at location A. MAN OR SUPERVISOR AND OPERATOR
[2021-10-17 10:37] LABS: Estimated Glomerular Filt Rate > 60
== END ==
PROVIDERS: PCP Family Medicine; Visit Provider Otolaryngology
DX: R59.0 Localized enlarged lymph nodes (principal)
CPT/HCPCS: 70491; Q9967

== ENCOUNTER → 2021-10-23 15:00 | Outpatient (CLI) | payer MEDICARE, SELFPAY ==
--- NOTE | ~2021-10-23 | XR_ITS ---
EXAMINATION: XR lumbar spine 2-3V DATE: 10/23/2021 16:06 INDICATION: Low back pain TECHNIQUE: Anteroposterior and lateral views of the lumbar spine, and cone-down lateral view of the l umbosacral junction were obtained. COMPARISON: 09/25/2021 FINDINGS: Vertebroplasty changes noted at L3. There is mild for many superior L2 endplate. Bone align ment is normal. There is severe loss of intervertebral disc space height at L4-5 and L5-S1. There is moderate facet osteoarthritis. Surgical changes are noted in the upper abdomen and left mid abdomen. A neurostimulator device is implanted in the posterior subcutaneous tissues of the left. Its leads co ursing beyond the superior margin of the radiograph. IMPRESSION: 1. Possible acute L2 compression fracture. Reviewed, dictated and finalized at location A. LESS CONSULTANT
--- NOTE | ~2021-10-23 | XR_ITS ---
EXAMINATION: XR thoracic spine 3V DATE: 10/23/2021 16:06 INDICATION: Low back pain TECHNIQUE: AP, lateral and lateral swimmer's views of the thoracic spine were obtained. COMPARISON: 09/25/2021 FINDINGS: There is no fracture, dislocation, or subluxation of the thoracic spine. The vertebral body heights are maintained. There is mild loss of intervertebral disc space height at a few levels in th e midthoracic spine. Changes of anterior fusion are noted C6-7. Neurostimulator leads project in the central spinal canal at the level of T9. Small degenerative osteophytes project from the anterior end plates of multiple vertebral bodies. There are surgical changes in the left upper quadrant. Surgical clips in the right upper quadrant are likely from prior cholecystectomy. Vertebroplasty change is not ed at L3. IMPRESSION: 1. Moderate thoracic spondylosis without acute findings. Reviewed, dictated and finalized at location A. R PULLER
--- NOTE | ~2021-10-23 | XR_ITS ---
EXAMINATION: XR sacroiliac joints min 3V INDICATION: Low back pain TECHNIQUE: Two views of the sacroiliac joints are obtained. COMPARISON: 08/02/2021 FINDINGS: Bone alignment is normal. There is no fracture. No acute abnormality of the sacroiliac join ts is identified. There is a partially imaged neurostimulator device. Severe spondylosis is noted in the visualized lumbar spine. IMPRESSION: 1. No acute osseous abnormality. Reviewed, dictated and finalized at location A. STRIAL NURSE
== END ==
PROVIDERS: PCP Physician Assistant Medical; Visit Provider Physician Assistant Medical
DX: M54.50 Low back pain, unspecified (principal); M53.3 Sacrococcygeal disorders, not elsewhere classified; M47.894 Other spondylosis, thoracic region
CPT/HCPCS: 72072; 72100; 72202

== ENCOUNTER → 2021-10-29 16:19 | Outpatient (CLI) | payer MEDICARE, SELFPAY ==
--- NOTE | ~2021-10-29 | CT_ITS ---
EXAMINATION: CT lumbar spine wo con DATE: 10/29/2021 16:37 INDICATION: Wedge compression fracture of second lumbar vertebra, initial evaluation. TECHNIQUE: Computed tomography (CT) of the lumbar spine was performed without intravenous contrast. A utomated exposure control and iterative reconstruction technique were employed. The dose-length produ ct was 900.11 mGy-cm. COMPARISON: Lumbar spine CT 10/28/2019 FINDINGS: Partially visualized are epidural electrodes. There is 3 mm anterolisthesis of L3 on L4. Th ere is a compression fracture of L3 with 2/5 loss of height and changes of vertebroplasty. There is a burst fracture of superior endplate of L2 with 2/5 loss of height and retropulsion of bone 3 mm into central spinal canal. There is mildly decreased disc height at L1-L2 and L2-L3, moderately decreased disc height at L3-L4, and severely decreased disc height at L4-L5 and L5-S1 with endplate remodeling . 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 There are surgical changes in the stomach. The following disc l evels are specifically discussed: L1-L2: The disc is bulging. There is severe right and moderate left facet joint osteoarthritis. There is mild bilateral neural foraminal stenosis. There is mild central canal stenosis. L2-L3: The disc is bulging. There is severe right and moderate left facet joint osteoarthritis. There is moderate bilateral neural foraminal stenosis. There is mild central canal stenosis. L3-L4: The disc is bulging. There is severe bilateral facet joint osteoarthritis. There is moderate b ilateral neural foraminal stenosis. There is mild central canal stenosis. L4-L5: The disc is bulging. There is severe bilateral facet joint osteoarthritis. There is moderate b ilateral neural foraminal stenosis. There is mild central canal stenosis. L5-S1: The disc is bulging. There is severe bilateral facet joint osteoarthritis. There is moderate b ilateral neural foraminal stenosis. There is mild central canal stenosis. IMPRESSION: 1. Acute versus subacute burst fracture of L2. 2. Severe lumbar spondylosis, stable from 10/28/2019. Reviewed, dictated and finalized at location A. ER DENTURE
== END ==
PROVIDERS: PCP Family Medicine; Visit Provider Nurse Practitioner Adult Health
DX: S22.020A Wedge compression fracture of second thoracic vertebra, initial encounter for closed fracture (principal); X58.XXXA Exposure to other specified factors, initial encounter; M47.896 Other spondylosis, lumbar region
CPT/HCPCS: 72131

== ENCOUNTER → 2021-12-10 13:08 | Outpatient (CLI) | payer MEDICARE, SELFPAY ==
--- NOTE | ~2021-12-10 | US_ITS ---
EXAMINATION: US thyroid DATE: 12/10/2021 13:41 INDICATION: Hypothyroidism, unspecified. Thyroid nodules. TECHNIQUE: Multiple ultrasound images of the thyroid were obtained. COMPARISON: Ultrasound 06/20/2021, 06/07/2019 FINDINGS: The right thyroid lobe measures 4.4 x 1.9 x 2.0 cm. The left thyroid lobe measures 4.4 x 2.0 x 1.6 c m. In the right thyroid lobe, there is a 2 mm nodule. The right thyroid lobe, there is an 8 mm solid , isoechoic, nmldz-gaie-rhpt nodule with ill-defined margin without echogenic foci (TI-RADS TR3). In the left thyroid lobe, there is a 12 mm solid, isoechoic, qxxrk-thdg-uwgc nodule with ill-defined mar gin without echogenic foci (TR3). IMPRESSION: 1. Small thyroid nodules, likely not clinically significant. No follow-up is needed. Reviewed, dictated and finalized at location A. IMPRESSION: 1. Small thyroid nodules, likely not clinically significant. No follow-up is ne eded.
== END ==
PROVIDERS: PCP Family Medicine; Visit Provider Family Medicine
DX: E03.9 Hypothyroidism, unspecified (principal); E04.2 Nontoxic multinodular goiter
CPT/HCPCS: 76536

== ENCOUNTER → 2021-12-21 10:17 | Outpatient (CLI) | payer MEDICARE, SELFPAY ==
--- NOTE | ~2021-12-21 | CT_ITS ---
EXAMINATION: CT lumbar spine wo [facility] EXAM DATE: 12/21/2021 10:33 INDICATION: Lumbar spondylosis. TECHNIQUE: Spiral CT of the lumbar spine was performed without contrast. Axial, coronal and sagittal images lumbar spine were reviewed. The dose-length product (DLP) for this examination was 874.29 mG y-cm. The exposure was tailored according to patient size (auto mA exposure control), and iterative reconstruction (ASIR) was used as additional dose reduction technique. Comparison is made to prior e xamination from 10/29/2021. FINDINGS: Chronic L2 and L3 burst fractures with moderate loss of the L2 vertebral body height and mi ld to moderate at L3. Compared to previous examination, interval L2 methylmethacrylate injection, aide atment. There has also been mild progression in the amount of vertebral body height loss compared to prior study. There is 3 mm of retropulsion L2 superior endplate. The L3 vertebroplasty is unchanged. There is 2 mm anterolisthesis L3 on L4. Pacemaker/AICD leads. There are no acute fractures identified . Mild lumbar dextroscoliosis. Moderate L4-5 and L5-S1 disc disease. Level by level evaluation: T12-L1: Disc does not extend beyond the endplate margin. Facet arthropathy: Mild to moderate. Neural foraminal stenosis: No stenosis. Central canal stenosis: No stenosis. L1-L2: There is a moderate diffuse disc bulge, mild retropulsion L2 superior endplate. Facet arthropathy: Moderate. Neural foraminal stenosis: Mild bilateral. Central canal stenosis: Moderate. L2-L3: There is a moderate diffuse disc bulge. Facet arthropathy: Moderate to severe right, moderate left. Neural foraminal stenosis: Mild to moderate bilateral. Central canal stenosis: Moderate. L3-L4: There is a moderate diffuse disc bulge. Facet arthropathy: Severe left, moderate to severe right. Neural foraminal stenosis: Moderate bilateral. Central canal stenosis: Moderate. L4-L5: There is a moderate diffuse disc bulge. Facet arthropathy: Severe right, moderate to severe left. Neural foraminal stenosis: Moderate to severe bilateral. Central canal stenosis: Mild to moderate. L5-S1: There is a mild to moderate diffuse disc bulge. Facet arthropathy: Severe bilateral. Neural foraminal stenosis: Moderate to severe bilateral. Central canal stenosis: Mild. IMPRESSION: 1. Subacute L2 burst fracture with mild progression but also interval treatment. 2. Chronic L3 burst fracture. 3. Moderate central canal stenosis L1-2, L2-3 and L3-4. 4. Moderate to severe lower lumbar arthropathy and neural foraminal stenosis unchanged Reviewed, dictated and finalized at location A. IMPRESSION: 1. Subacute L2 burst fracture with mild progression but also interval treatmen t. 2. Chronic L3 burst fracture. 3. Moderate central canal stenosis L1-2, L2-3 and L3-4. 4. Moderate to severe lower lumbar arthropathy and neural foraminal stenosis u nchanged
== END ==
PROVIDERS: PCP Nurse Practitioner Adult Health; Visit Provider Nurse Practitioner Adult Health
DX: M47.816 Spondylosis without myelopathy or radiculopathy, lumbar region (principal); S32.031A Stable burst fracture of third lumbar vertebra, initial encounter for closed fracture; X58.XXXA Exposure to other specified factors, initial encounter
CPT/HCPCS: 72131

== ENCOUNTER → 2021-12-31 12:43 | Outpatient (CLI) | payer MEDICARE, SELFPAY ==
--- NOTE | ~2021-12-31 | CT_ITS ---
EXAMINATION: CT hip LT wo con DATE: 12/31/2021 12:54 INDICATION: Left hip pain TECHNIQUE: High resolution computed tomography (CT) of the left hip was performed without intravenous contrast. Additional sagittal and coronal reconstructions were performed. Automated exposure control and iterative reconstruction technique were employed. The dose-length product was 683.81 mGy-cm. COMPARISON: None FINDINGS: Bone alignment is normal. No fracture or osteonecrosis. Mild left hip osteoarthritis. No left hip zo nt effusion. Small enthesophytes at the left greater than trochanter of the lesser trochanter and sma ll amount of enthesopathic consultation at the ischial tuberosity origin of the left proximal hamstri ng tendons. Severe lower lumbar spondylosis. Mild to moderate left sacroiliac osteoarthritis. Subcuta neous power supply at the superior left buttock likely for a nonvisualized spinal stimulator lead. Vi sualized portions of the left hemipelvis pelvis and left lateral abdomen are unremarkable. The uterus is not identified and has likely been surgically resected. No pathologically enlarged left pelvic or inguinal lymphadenopathy. IMPRESSION: 1. Mild left hip osteoarthritis. No acute osseous abnormality. 2. Severe lower lumbar spondylosis. Reviewed, dictated and finalized at location A.
--- NOTE | ~2021-12-31 | XR_ITS ---
EXAMINATION: XR hip LT min 3V w AP pelvis DATE: 12/31/2021 13:03 INDICATION: Left hip pain. TECHNIQUE: An anteroposterior view of the pelvis and 2 views of left hip were obtained. COMPARISON: Left hip CT 12/31/2021 FINDINGS: Bone alignment is normal. No fracture. There is moderate left hip osteoarthritis. There is mild right hip osteoarthritis. Partially visualized electronic device overlying left abdomen. IMPRESSION: 1. Moderate left hip osteoarthritis and mild right hip osteoarthritis. Reviewed, dictated and finalized at location B.
== END ==
PROVIDERS: PCP Family Medicine; Visit Provider Family Medicine
DX: M16.0 Bilateral primary osteoarthritis of hip (principal); M47.896 Other spondylosis, lumbar region
CPT/HCPCS: 73502; 73700

== ENCOUNTER 2022-04-28 15:15 | Emergency (ER) | payer MEDICARE, SELFPAY ==
--- NOTE | ~2022-04-28 | XR_ITS ---
EXAMINATION: XR chest 2V Exam Date/Time: 04/28/2022 16:18 CDT HISTORY: weakness Comparison: 03/14/2021. RESULT: Lines, tubes, and devices: Incompletely visualized cervical fusion hardware. Stimulator leads termin ate over the mid thoracic spine. Cholecystectomy clips. Lungs and pleura: Left lower lung and right basilar scar/atelectasis. Cardiomediastinal silhouette: Stable. Other: No acute osseous or upper abdominal finding. IMPRESSION: No acute cardiopulmonary process. Reviewed, dictated and finalized at location K.
--- NOTE | ~2022-04-28 | CT_ITS ---
EXAMINATION: CT brain wo con DATE: 04/28/2022 16:46 INDICATION: weakness . TECHNIQUE: Computed tomography (CT) of the head was performed without intravenous contrast. The mA wa s adjusted according to patient size. Iterative reconstruction technique was employed. The dose-lengt h product was 605.33 mGy-cm. COMPARISON: 03/14/2021 FINDINGS: No acute intracranial hemorrhage or extra-axial fluid collection. No hydrocephalus, mass, or herniation. No acute ischemic infarct. Unremarkable dural venous sinus attenuation. No acute osseous abnormality. The aerated spaces are clear. Mild atrophy and chronic white matter change. Stable right insular encephalomalacia. Partially empty sella. Atherosclerotic intracranial calcification. Bilateral lens replacements. IMPRESSION: No acute intracranial process. Reviewed, dictated and finalized at location K.
[2022-04-28 15:21] VITALS: BP 112/96; PULSE 65; RESP 14; TEMP 37.1; O2SAT 96
--- NOTE | 2022-04-28 15:40 | ED.GENADULT ---
HPI - General Adult General Chief complaint: Unspecified Stated complaint: jerking movements Time Seen by Provider: 04/28/22 15:40 Source: patient Mode of arrival: ambulatory Limitations: no limitations History of Present Illness HPI narrative: Patient is a 71-year-old female with a history of pulmonary hypertension, hypothyroidism, hyperlipidemia, bipolar disorder, presenting to the emergency department for evaluation of general unsteadiness, tremor-like activity. Patient reports intermittent tremors of her upper extremities. Patient states she has felt like this over the past 3 days. She denies any recent medication changes or new medications. She has been compliant with all of her medications including her antipsychotic medications. She denies fever, chills, nausea, vomiting abdominal pain. She denies focal weakness or numbness. Related Data Home Medications Medication Instructions Recorded Confirmed vit C 250 mg-vit E 90 mg-zinc 40 1 tablet PO BID 11/02/19 12/25/21 mg-copper 1 pv-pbeuqi-uksknp capsule (PreserVision AREDS-2) oxybutynin chloride 10 mg 10 mg PO DAILY 01/19/20 12/25/21 tablet,extended release 24 hr duloxetine 60 mg capsule,delayed mg PO 03/03/20 12/25/21 release lamotrigine 100 mg tablet 100 mg PO DAILY 11/24/20 12/25/21 trazodone 50 mg tablet 50 mg PO QHS PRN Sleep 09/20/21 12/25/21 ziprasidone HCl 80 mg capsule 80 mg PO QPM 09/20/21 12/25/21 amitriptyline 25 mg tablet 25 mg PO QHS 12/25/21 12/25/21 oxycodone-acetaminophen 7.5 mg-325 1 tablet PO Q6H PRN 12/25/21 12/25/21 mg tablet sumatriptan succinate 50 mg tablet 50 mg PO ONCE 12/25/21 12/25/21 benfotiamine 150 mg capsule 150 mg PO BID 01/08/22 calcium carbonate 600 mg-vitamin cap PO 01/08/22 D3 12.5 mcg (500 unit) capsule (Calcium 600 with Vitamin D3) calcium citrate 200 mg (950 mg) 200 mg PO DAILY 01/08/22 tablet cetirizine 10 mg tablet (Zyrtec) 10 mg PO DAILY PRN 01/08/22 cholecalciferol (vit D3) 1,000 1 tablet PO DAILY 01/08/22 unit-vitamin K2 (MK4) 100 mcg tablet (K2 Plus D3) d-mannose 500 mg capsule mg PO 01/08/22 diphenhydramine 25 1 tablet PO QHS PRN 01/08/22 mg-acetaminophen 500 mg tablet (Tylenol PM Extra Strength) magnesium 200 mg tablet 200 mg PO DAILY 01/08/22 magnesium oxide 500 mg capsule 500 mg PO DAILY 01/08/22 multivitamin with minerals 1 tablet PO DAILY 01/08/22 (Hair,Skin and Nails tablet) multivitamin-ferrous 1 tablet PO DAILY 01/08/22 fumarate-folic acid 18 mg-400 mcg tablet (Centrum Complete) riboflavin (vitamin B2) 400 mg 400 mg PO DAILY 01/08/22 tablet ubrogepant 100 mg tablet (Ubrelvy) 100 mg PO ONCE 01/08/22 zinc 50 mg tablet 50 mg PO DAILY 01/08/22 Allergies Allergy/AdvReac Type Severity Reaction Status Date / Time No Known Allergies Allergy Verified 01/30/22 12:02 Review of Systems Review of Systems: CONSTITUTIONAL: Denies fever, chills, or sweats. EYES: Denies visual changes, redness, or discharge. ENT: Denies rhinorrhea, congestion, sore throat, or otalgia. CARDIOVASCULAR: Denies chest pain, palpitations, or edema. RESPIRATORY: Denies cough or dyspnea. GASTROINTESTINAL: Denies abdominal pain, nausea, vomiting, or diarrhea. GENITOURINARY: Denies dysuria or hematuria. SKIN: Denies rash or itching. MUSCULOSKELETAL: Denies back pain, joint pain, or myalgia. NEUROLOGIC: Denies headache, denies numbness, reports tremulous activity, denies difficulty with speech PMFSH Past Medical History Medical History Abnormal colonoscopy 7.16.19: polyps/ repeat in 5 years Acute foreign body of right ear canal Allergic rhinitis Allergies Anxiety Arthritis At risk for fall due to comorbid condition Bipolar disorder, current episode depressed, mild Chronic bilateral low back pain with sciatica Chronic or old strain of lumbosacral spine Chronic otitis externa of right ear Cystocele Degeneration of cervical interverte
--- NOTE | 2022-04-28 15:49 | ECG_ITS ---
Measurements Intervals [place] Rate: 59 P: 24 ND: 188 QRS: -9 QRSD: 88 T: -7 QT: 420 QTc: 419 Interpretive Statements SINUS BRADYCARDIA LOW QRS VOLTAGE IN PRECORDIAL LEADS [QRS DEFLECTION < 1.0 mV IN CHEST LEADS] COMPARED TO ECG 07/03/2020 13:30:16 NO SIGNIFICANT CHANGES Electronically Signed On 04-29-2022 16:50:55 CDT by Yogi Ho M.D.
[2022-04-28 16:45] LABS: Basophils Percent Auto 0.7 % (0.2-1.2); Eosinophils Absolute Auto 0.3 K/mm3 (0-0.3); Eosinophils Percent Auto 5.4 % (0-4.4); Hematocrit 36.2 % (37.0-47.0); Hemoglobin 11.9 g/dL (12.0-15.0); Immature Granulocyte Absolute 0.02 K/mm3 (0.00-0.031); Immature Granulocyte Percent A 0.4 % (0-0.5); Lymphocytes Absolute Auto 1.57 K/mm3 (0.9-3.2); Lymphocytes Percent Auto 29.2 % (18.3-44.2); Mean Corpuscular HGB Conc 32.9 g/dl (32-36); Mean Corpuscular Hemoglobin 29.2 pg (26-34); Mean Corpuscular Volume 88.9 fl (80-100); Mean Platelet Volume 9.4 fl (7.4-10.4); Monocytes Absolute Auto 0.4 K/mm3 (0.1-0.6); Monocytes Percent Auto 6.9 % (2.6-8.5); Neutrophils Absolute Auto 3.1 K/mm3 (1.3-6.7); Neutrophils Percent Auto 57.4 % (45.5-73.1); Platelet Count Result 235 k/mm3 (150-375); Red Blood Count 4.07 M/mm3 (4.2-5.4); Red Cell Distribution Width 16.2 % (11.5-14.5); White Blood Count 5.4 K/mm3 (4.5-10.0)
[2022-04-28 16:46] LABS: Appearance Urine Clear (Clear); Bilirubin Urine Negative (Negative); Blood Urine Negative (Negative); Color Urine Yellow (Yellow); Glucose Urine UA Negative (Negative); Ketones Urine Negative (Negative); Leukocyte Esterase Ur 1+ LEU/UL (Negative); Nitrate Urine Negative (Negative); Protein Urine Negative (Negative); Specific Grav Ur 1.015 (1.001-1.035); Urobilinogen Urine 0.2 mg/dL (<2.0); pH Urine 5.5 (5.0-9.0)
[2022-04-28 16:53] LABS: Mucus Urine Rare /lpf; RBC Urine 0-2 /hpf (0-2); Squamous Epithelial Cell Urine Rare /hpf (Few)
[2022-04-28 16:54] LABS: Anion Gap 6 mmol/L (8-16); Blood Urea Nitrogen 14 mg/dL (7-17); Calcium 9.1 mg/dL (8.4-10.2); Carbon Dioxide 35 mmol/L (22-30); Chloride 97 mmol/L (98-107); Estimated CRCL calculation 83 ml/min; Estimated Glomerular Filt Rate > 60; Glucose 94 mg/dL (65-110); Potassium 3.7 mmol/L (3.4-5.0); Sodium 138 mmol/L (137-145)
[2022-04-28 17:01] VITALS: BP 123/62; PULSE 53; RESP 12; O2SAT 100
[2022-04-28 17:01] LABS: Add Urine Microscopic? YES
[2022-04-28 17:09] LABS: Troponin I < 0.012 ng/mL (0.000-0.034)
[2022-04-28 17:25] LABS: Thyroid Stimulating Hormone 0.244 uIU/mL (0.465-4.680)
[2022-04-28 17:35] LABS: Ethanol < 10 mg/dL (<10)
[2022-04-28 18:18] VITALS: BP 136/64; PULSE 54; RESP 14; O2SAT 98
[2022-04-28 18:20] LABS: Amphetamine Screen Urine Negative (Negative); Barbiturate Screen Urine Negative (Negative); Benzodiazepines Screen Urine Negative (Negative); Cannabinoid Screen Urine Negative (Negative); Cocaine Screen Urine Negative (Negative); Methadone Screen Urine Negative (Negative); Opiate Screen Urine Positive (Negative); Phencyclidine Screen Urine Negative (Negative)
[2022-04-28 19:25] VITALS: BP 125/65; PULSE 52; RESP 20; O2SAT 94
--- NOTE | 2022-04-28 19:32 | PC.NURSE ---
PT ready for transfer, waiting for neighbor to drive her to [facility]
--- NOTE | 2022-04-28 20:07 | PC.NURSE ---
PT attempted to call son with no answer. Working on ride to come pick pt up.
[2022-05-01 06:56] LABS: Lamotrigine Lamictal 1.9 mcg/mL (4.0-18.0)
== END 2022-04-28 20:18 | disposition short-term general hospital (02) ==
PROVIDERS: Emergency Provider Emergency Medicine; PCP Family Medicine
DX: G25.3 Myoclonus (principal); H43.399 Other vitreous opacities, unspecified eye; H53.8 Other visual disturbances; I10 Essential (primary) hypertension; E03.9 Hypothyroidism, unspecified; E78.5 Hyperlipidemia, unspecified; J45.20 Mild intermittent asthma, uncomplicated; G47.33 Obstructive sleep apnea (adult) (pediatric); M19.90 Unspecified osteoarthritis, unspecified site; M81.0 Age-related osteoporosis without current pathological fracture; F31.9 Bipolar disorder, unspecified; Z98.84 Bariatric surgery status; Z98.42 Cataract extraction status, left eye; Z98.41 Cataract extraction status, right eye; Z96.653 Presence of artificial knee joint, bilateral; Z87.891 Personal history of nicotine dependence; Z79.899 Other long term (current) drug therapy; R00.1 Bradycardia, unspecified
CPT/HCPCS: 36415; 70450; 71046; 80048; 80175; 80307; 81001; 84443; 84484; 85025; 93005; 99284

== ENCOUNTER 2022-05-10 15:23 | Outpatient (CLI) | payer MEDICARE, SELFPAY ==
--- NOTE | ~2022-05-10 | US_ITS ---
EXAMINATION: US carotid duplex BI DATE: 05/10/2022 16:44 INDICATION: Transient cerebral ischemic attack. Disturbance of skin sensation. TECHNIQUE: Grayscale, color Doppler, and pulsed Doppler images of the cervical carotid arteries were obtained. The degree of vessel stenosis is placed in one of the following categories: normal, <50%, 5 0-69%, >=70% but less than near-occlusion, near-occlusion, or total occlusion. Note that percent sten osis relative to normal distal artery lumen diameter is indirectly measured from velocity measurement s as described by Darius, et al. Radiology 2003; 229:340-346. COMPARISON: None. FINDINGS: RIGHT: The right common carotid artery (CCA) peak systolic velocity (PSV) is 114 cm/s. The right internal ca rotid artery (ICA) PSV is 77 cm/s. The right ICA end-diastolic velocity (EDV) is 20 cm/s. The right I CA/CCA PSV ratio is 0.8. Grayscale and color Doppler images yield an estimate of <50% diameter reduct ion from plaque in the ICA. The external carotid artery (ECA) PSV is 105 cm/s. There is antegrade mary beth w in the right vertebral artery. LEFT: The left CCA PSV is 182 cm/s. The left ICA PSV is 61 cm/s. The left ICA EDV is 24 cm/s. The left ICA/ CCA PSV ratio is 1.2. Grayscale and color Doppler images yield an estimate of <50% diameter reduction from plaque in the ICA. The ECA PSV is 88 cm/s. There is antegrade flow in the left vertebral artery . IMPRESSION: 1. <50% stenosis in the right internal carotid artery. 2. <50% stenosis in the left internal carotid artery. Reviewed, dictated and finalized at location A.
== END 2022-05-10 15:24 | disposition home or self-care (01) ==
PROVIDERS: PCP Family Medicine; Visit Provider Family Medicine
DX: I65.23 Occlusion and stenosis of bilateral carotid arteries (principal)
CPT/HCPCS: 93880

== ENCOUNTER → 2022-06-13 11:43 | Outpatient (CLI) | payer MEDICARE, SELFPAY ==
--- NOTE | ~2022-06-13 | US_ITS ---
EXAMINATION: US abdomen limited DATE: 06/13/2022 12:16 INDICATION: Abnormal liver enzymes TECHNIQUE: Multiple grayscale and Doppler ultrasound images of the abdomen were obtained. COMPARISON: None available FINDINGS: Bowel gas obscures visualization of the pancreas. The visualized portions of the pancreas a re unremarkable. The liver is normal with normal echogenicity and echotexture. No surface nodularity. Normal hepatopetal flow in the main portal vein. The gallbladder is surgically absent. The common bi le duct measures 9 mm, consistent with post cholecystectomy state. IMPRESSION: 1. Enlargement of the common bile duct, consistent with post cholecystectomy state. Reviewed, dictated and finalized at location F. IMPRESSION: 1. Enlargement of the common bile duct, consistent with post cholecystectomy st ate.
== END ==
PROVIDERS: PCP Family Medicine; Visit Provider Family Medicine
DX: R74.8 Abnormal levels of other serum enzymes (principal)
CPT/HCPCS: 76705

== ENCOUNTER → 2022-07-15 12:59 | Outpatient (CLI) | payer MEDICARE, SELFPAY ==
--- NOTE | ~2022-07-15 | MM_ITS ---
EXAMINATION: MM screening rodriguez BI w mir HISTORY: Screening TECHNIQUE: Craniocaudal and mediolateral oblique 3-D tomosynthesis images were obtained and synthetic 2-D images were generated. CAD analysis was submitted and interpreted. COMPARISON: Comparison to multiple prior studies sequentially, with oldest reviewed study dated 11/19. BREAST PARENCHYMAL COMPOSITION: Breast composed of scattered areas of fibroglandular density FINDINGS: Stable benign-appearing right breast mass, upper outer quadrant, likely benign cyst or intr amammary lymph node. There is no evidence of suspicious mass, calcification, or architectural distort ion to suggest malignancy in either breast. There has been no suspicious interval change. IMPRESSION: 1. No mammographic evidence of malignancy. 2. Recommend routine screening mammography in one year. BI-RADS Category 2: Benign finding(s). Reviewed, dictated and finalized at location A. 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
== END ==
PROVIDERS: PCP Family Medicine; Visit Provider Family Medicine
DX: Z12.31 Encounter for screening mammogram for malignant neoplasm of breast (principal)
CPT/HCPCS: 77063; 77067

== ENCOUNTER → 2022-12-20 12:27 | Outpatient (CLI) | payer MEDICARE, SELFPAY ==
--- NOTE | ~2022-12-20 | CT_ITS ---
Noncontrast CT scan of the lumbar spine CLINICAL HISTORY: Back pain TECHNIQUE: Axial noncontrast imaging of the lumbar spine was performed. Sagittal and coronal reformat betty images were constructed. Dose reduction technique was used on this scan by utilizing automated ex posure control and iterative reconstruction technique. The dose-length product (DLP) was 831.72 mGy-c m. COMPARISON: 12/21/2021 FINDINGS: There are stable compression fracture deformities of L2 and L3, with vertebroplasty cement in place. No new fracture identified. Minimal grade 1 anterolisthesis of L3 over L4 is unchanged. Sev ere degenerative disc change at L4-L5 and L5-S1 is present, worsened from prior exam. There is severe degenerative disc change at L3-L4, worsened from prior exam. There is moderate to severe degenerativ e disc change at L1-L2, worsened from prior exam. At L1-L2, disc bulge and facet arthropathy result in probable moderate to possibly severe central can al stenosis/thecal sac compression. There is moderate bilateral neural foraminal narrowing. At L2-L3, disc bulge and moderate to advanced facet arthropathy are present, with probable mild centr al canal stenosis. There is severe left neural foraminal narrowing and moderate to severe right neura l foraminal narrowing. At L3-L4, disc bulge and severe facet arthropathy are present. There is probable mild central canal s tenosis. There is moderate to severe bilateral neural foraminal narrowing. At L4-L5, there is disc bulge and severe facet arthropathy. No abraham spinal canal stenosis. There is moderate to severe bilateral neural foraminal narrowing. At L5-S1, there is minimal disc bulge. There is advanced facet arthropathy. No spinal canal stenosis. There is severe bilateral neural foraminal narrowing. Paravertebral soft tissues are unremarkable. Impression: Severe degenerative spondylosis, overall very similar to prior exam. There is multilevel central brady l stenosis/thecal sac compression as well as multilevel neural foraminal narrowing. Please see detail s above. Stable compression fracture deformities of L2 and L3, with vertebroplasty cement. Worsening degenerative disc changes at several levels, as detailed above. Reviewed, dictated and finalized at location M. Impression: Severe degenerative spondylosis, overall very similar to prior exam. There is m ultilevel central canal stenosis/thecal sac compression as well as multilevel n eural foraminal narrowing. Please see details above. Stable compression fracture deformities of L2 and L3, with vertebroplasty cemen t. Worsening degenerative disc changes at several levels, as detailed above.
== END ==
PROVIDERS: PCP Nurse Practitioner Family; Visit Provider Nurse Practitioner Family
DX: M47.26 Other spondylosis with radiculopathy, lumbar region (principal); M51.36 Other intervertebral disc degeneration, lumbar region
CPT/HCPCS: 72131

== ENCOUNTER 2023-05-12 08:02 | Outpatient (CLI) | payer MEDICARE, SELFPAY ==
--- NOTE | ~2023-05-12 | NM_ITS ---
EXAMINATION: NM rishi stress w perfusion DATE: 05/12/2023 11:20 CDT INDICATION: Dyspnea. TECHNIQUE: Rest images were obtained following intravenous administration of 11.9 mCi Tc99m tetrofosm in (Myoview). The patient was infused intravenously with Lexiscan (regadenoson). Then, 34.5 mCi Tc99m tetrofosmin (Myoview) was administered intravenously, and stress images were obtained. Data was mykel nstructed into short axis and horizontal and vertical long axis SPECT images. Gated SPECT images were also obtained. COMPARISON: None. FINDINGS: There is no definite reversible or fixed perfusion abnormality to suggest ischemia or infar ction. There is no segmental wall motion abnormality. Left ventricular ejection fraction measures 7 2%. IMPRESSION: 1. No definite ischemia or infarct. 2. Normal left ventricular ejection fraction measuring 72%. Reviewed, dictated and finalized at location B.
--- NOTE | 2023-05-12 09:02 | EST_ITS ---
Patient Info Name: Palma Freire Age: 72 years : 1950 Gender: Female Ht: 65 in Wt: 195 lbs BSA: 2.05 m2 HR: 66 bpm BP: 125 / 70 mmHg Heart Rhythm: Sinus Rhythm Exam Date: 05/12/2023 9:17 AM Exam Location: [facility] Stress Patient Status: Outpatient Admit Date: 05/12/2023 Staff Ordering Physician: Selvin Carson DO Attending Provider: Selvin Carson DO Exercise Technologist: Marsha Nunez CT Exercise Physician: Selvin Carson DO Exam Type: CA stress rishi w NM Study Info Indications R06.09 - Other forms of dyspnea Z01.810 - Encounter for preprocedural cardiovascular examination A regadenoson stress test was performed. Summary 1. 1. Negative lexiscan stress test for ischemic ST changes by ECG criteria. 2. 2. Stable hemodynamics throughout the test. 3. 3. Nuclear scan to follow and will be reported separately. Please correlate with it. 4. 4. Patient informed of the above results. Protocol: Lexiscan Stress ECG Details Stage: REST Duration (min): 0 min : 55 sec HR (bpm): 69 SBP (mmHg): 125 DBP (mmHg): 70 Stage: REST Duration (min): 8 min : 19 sec HR (bpm): 66 SBP (mmHg): 125 DBP (mmHg): 70 Stage: STAGE 1 Duration (min): 1 min : 0 sec HR (bpm): 75 SBP (mmHg): 153 DBP (mmHg): 69 Stage: RECOVERY Duration (min): 1 min : 0 sec HR (bpm): 77 SBP (mmHg): 153 DBP (mmHg): 69 Stage: RECOVERY Duration (min): 2 min : 0 sec HR (bpm): 75 SBP (mmHg): 153 DBP (mmHg): 69 Stage: RECOVERY Duration (min): 3 min : 0 sec HR (bpm): 73 SBP (mmHg): 135 DBP (mmHg): 72 Stage: RECOVERY Duration (min): 3 min : 10 sec HR (bpm): 72 SBP (mmHg): 135 DBP (mmHg): 72 Rest HR: 66 bpm Peak HR: 80 bpm Rest Sys BP: 125 mmHg Peak Sys BP: 153 mmHg Max Pred HR: 150 bpm % Max Pred HR: 53 % Target HR: 128 bpm Max RPP: 12,240 bpm*mmHg Termination Reason: Completed protocol Cardiac Symptoms: Shortness of breath Total Time: 1 min : 0 sec Rest Finn BP: 70 mmHg Peak Finn BP: 69 mmHg Total Dose: 0.4 mg Resting ECG Sinus rhythm, PAC. Stress ECG No ST changes. Arrhythmias None. Report Signatures
== END 2023-05-12 08:03 | disposition home or self-care (01) ==
PROVIDERS: PCP Family Medicine; Visit Provider Internal Medicine Cardiovascular Disease
DX: R06.09 Other forms of dyspnea (principal)
CPT/HCPCS: 78452; 93017; A9502; J2785

== ENCOUNTER 2023-08-29 08:13 | Outpatient (CLI) | payer MEDICARE, SELFPAY ==
[2023-08-29 13:43] LABS: Alanine Aminotransferase 18 U/L (6-35); Albumin Level 4.2 g/dL (3.5-5.1); Alkaline Phosphatase 113 U/L (38-126); Anion Gap 6 mmol/L (8-16); Aspartate Amino Transferase 46 U/L (14-36); Bilirubin,Total 0.7 mg/dL (0.2-1.3); Blood Urea Nitrogen 9 mg/dL (7-17); Calcium 9.4 mg/dL (8.4-10.2); Carbon Dioxide 31 mmol/L (22-30); Chloride 103 mmol/L (98-107); Cholesterol 217 mg/dL (0-200); Estimated Glomerular Filt Rate > 60; Glucose 90 mg/dL (65-110); HDL Direct 96 mg/dL; Potassium 4.3 mmol/L (3.4-5.0); Sodium 140 mmol/L (137-145); Triglycerides 79 mg/dL (<150)
[2023-08-29 13:49] LABS: Rheumatoid Factor < 12.0 IU/ML (<12)
[2023-08-29 13:56] LABS: LDL Cholesterol Direct 97 mg/dL
[2023-08-29 15:31] LABS: Hemoglobin A1C 5.3 % (<5.7)
== END 2023-08-29 08:14 | disposition home or self-care (01) ==
PROVIDERS: PCP Family Medicine; Visit Provider Family Medicine
DX: E78.5 Hyperlipidemia, unspecified (principal); E11.40 Type 2 diabetes mellitus with diabetic neuropathy, unspecified; E53.8 Deficiency of other specified B group vitamins; H04.123 Dry eye syndrome of bilateral lacrimal glands; M35.00 Sjogren syndrome, unspecified
CPT/HCPCS: 36415; 80053; 80061; 82607; 83036; 84443; 86430

== ENCOUNTER 2023-10-30 11:55 | Outpatient (CLI) | payer MEDICARE, SELFPAY ==
--- NOTE | ~2023-10-30 | US_ITS ---
EXAMINATION: US carotid duplex BI DATE: 10/30/2023 13:01 INDICATION: Transient ischemic attack. TECHNIQUE: Grayscale, color Doppler, and pulsed Doppler images of the cervical carotid arteries were obtained. The degree of vessel stenosis is placed in one of the following categories: normal, <50%, 5 0-69%, >=70% but less than near-occlusion, near-occlusion, or total occlusion. Note that percent sten osis relative to normal distal artery lumen diameter is indirectly measured from velocity measurement s as described by Darius, et al. Radiology 2003; 229:340-346. COMPARISON: 05/20/2022 FINDINGS: RIGHT: The right common carotid artery (CCA) peak systolic velocity (PSV) is 104 cm/s. The right internal ca rotid artery (ICA) PSV is 72 cm/s. The right ICA end-diastolic velocity (EDV) is 21 cm/s. The right I CA/CCA PSV ratio is 0.7. Grayscale and color Doppler images yield an estimate of <50% diameter reduct ion from plaque in the ICA. The external carotid artery (ECA) PSV is 51 cm/s. There is antegrade flow in the right vertebral artery. LEFT: The left CCA PSV is 107 cm/s. The left ICA PSV is 74 cm/s. The left ICA EDV is 24 cm/s. The left ICA/ CCA PSV ratio is 0.7. Grayscale and color Doppler images yield an estimate of <50% diameter reduction from plaque in the ICA. The ECA PSV is 62 cm/s. There is antegrade flow in the left vertebral artery . IMPRESSION: 1. <50% stenosis in the right internal carotid artery. 2. <50% stenosis in the left internal carotid artery. Reviewed, dictated and finalized at location L. ING SITTER
== END 2023-10-30 11:56 | disposition home or self-care (01) ==
LOC: ANHIMG 12:02
PROVIDERS: Visit Provider Psychiatry & Neurology Neurology
DX: H53.2 Diplopia (principal); E11.40 Type 2 diabetes mellitus with diabetic neuropathy, unspecified; R20.0 Anesthesia of skin; Z86.73 Personal history of transient ischemic attack (TIA), and cerebral infarction without residual deficits; Z91.81 History of falling; I65.23 Occlusion and stenosis of bilateral carotid arteries
CPT/HCPCS: 93880

== ENCOUNTER 2023-10-31 12:12 | Outpatient (CLI) | payer MEDICARE, SELFPAY ==
--- NOTE | ~2023-10-31 | CT_ITS ---
Non-contrast Head CT History: TIA, paresthesia COMPARISON: 04/28/2022 Technique: Axial non-contrast imaging of the brain was performed. Dose reduction technique was used on this scan by utilizing automated exposure control and iterative reconstruction technique. The dose -length product (DLP) was 645.69 mGy-cm. Findings: There is no evidence of intracranial hemorrhage, mass lesion, or acute infarct. Brain par enchyma appears normal. The ventricles and subarachnoid spaces are normal in size. The calvarium ap pears normal. The visualized paranasal sinuses and mastoid air cells are clear. Impression: No significant abnormality seen. Reviewed, dictated and finalized at location . DENT SERVICES SUPERVISOR Impression: No significant abnormality seen.
== END 2023-10-31 12:13 ==
PROVIDERS: PCP Psychiatry & Neurology Neurology; Visit Provider Family Medicine
DX: R20.0 Anesthesia of skin (principal)
CPT/HCPCS: 70450

== ENCOUNTER 2023-12-03 10:09 | Outpatient (CLI) | payer MEDICARE, SELFPAY ==
[2023-12-07 20:56] LABS: H pylori Ag Stool Not Detected (Not Detected)
== END 2023-12-03 10:10 | disposition home or self-care (01) ==
LOC: ANHLAB 10:09
PROVIDERS: PCP Family Medicine; Visit Provider Nurse Practitioner Family
DX: K21.9 Gastro-esophageal reflux disease without esophagitis (principal)
CPT/HCPCS: 87338

== ENCOUNTER 2024-01-14 01:23 | Day surgery (SDC) | payer MEDICARE, SELFPAY ==
[2024-01-01 10:16] VITALS: BMI 36.6
[2024-01-14 11:47] VITALS: BP 167/83; PULSE 93; RESP 16; TEMP 36.6; O2SAT 98
[2024-01-14] MEDS: LACTATED RINGERS 1,000 ML 150 ML IV CONT (11:59)
--- NOTE | 2024-01-14 12:02 | WPDANESEPPF ---
Anes - Initial Pre Proc Eval Procedure: Operation Date: 01/14/24 13:30 Proposed Procedures p Esophagogastroduodenoscopy - Ravi Sahu MD Date/Time: 01/14/24 12:02 Surgeon: Ravi Sahu MD Pre Op Diagnosis: GERD Patient Data Age: 73 Gender: F Height: 1.65 m Weight: 98.6 kg Last Vital Signs Temp 97.8 F 01/14/24 11:47 Pulse 93 01/14/24 11:47 Resp 16 01/14/24 11:47 BP 167/83 H 01/14/24 11:47 Pulse Ox 98 01/14/24 11:47 O2 Del Method Room Air 01/14/24 11:47 Allergies Allergy/AdvReac Type Severity Reaction Status Date / Time No Known Allergies Allergy Verified 01/14/24 11:46 Home Medications Medication Instructions Recorded Confirmed Type vit C 250 mg-vit E 90 mg-zinc 40 1 tablet PO BID 11/02/19 01/01/24 History mg-copper 1 [id number] capsule (PreserVision AREDS-2) duloxetine 60 mg capsule,delayed 60 mg PO DAILY 03/03/20 01/01/24 History release multivitamin with minerals 1 tablet PO DAILY 01/08/22 01/01/24 History (Hair,Skin and Nails tablet) aspirin 81 mg tablet,delayed 81 mg PO DAILY #90 tabs 06/13/22 01/01/24 Rx release (Adult Aspirin Regimen) ascorbic acid (vitamin C) 1,000 mg 1 g PO DAILY 07/02/22 01/01/24 History capsule melatonin 5 mg chewable tablet 40 mg PO DAILY 07/02/22 01/01/24 History meclizine 25 mg tablet 25 mg PO BID PRN motion sickness 03/20/23 01/01/24 Rx #30 tabs levothyroxine 25 mcg tablet See Rx Instructions .Route 07/17/23 01/01/24 Rx .COMPLEX #90 tabs cyclosporine 0.05 % eye drops in a 1 drp EACH EYE Q12H 08/28/23 01/01/24 History dropperette (Restasis) famotidine 40 mg tablet 40 mg PO QHS #90 tabs 09/09/23 01/01/24 Rx pantoprazole 40 mg tablet,delayed 40 mg PO BID #180 tabs 09/09/23 01/01/24 Rx release propranolol 20 mg tablet See Rx Instructions .Route 09/09/23 01/01/24 Rx .COMPLEX #180 tabs sumatriptan succinate 50 mg tablet 50 mg PO .COMPLEX #30 tabs 09/09/23 01/01/24 Rx buspirone 5 mg tablet 5 mg PO BID 10/16/23 01/01/24 History ziprasidone HCl 60 mg capsule 60 mg PO BID 10/16/23 01/01/24 History linaclotide 72 mcg capsule 72 mcg PO DAILY PRN constipation 12/26/23 01/01/24 Rx (Linzess) #90 caps hydrocodone 5 mg-acetaminophen 325 1 tablet PO Q4H PRN Pain 01/01/24 01/01/24 History mg tablet mirtazapine 15 mg tablet See Rx Instructions .Route 01/07/24 01/14/24 Rx .COMPLEX #30 tabs Patient hx anesthesia problems: none Family hx anesthesia problems: none Results Review: All pre-operative results and documents have been reviewed as part of the pre-operative evaluation. [facility] Past Medical History Medical History Abnormal colonoscopy 716.19: polyps/ repeat in 5 years Acute foreign body of right ear canal Allergic rhinitis Allergies Anxiety Arthritis At risk for fall due to comorbid condition Bipolar disorder, current episode depressed, mild Chronic bilateral low back pain with sciatica Chronic or old strain of lumbosacral spine Chronic otitis externa of right ear Coccygeal contusion Compression fracture of L2 acute Cystocele Degeneration of cervical intervertebral disc Diverticulosis Facial pressure Fall Foot drop, right Hx of sleep apnea Hyperlipidemia Hypertrophy of both inferior nasal turbinates Hypothyroid Left hip pain Mild intermittent asthma Mild persistent asthma, uncomplicated Mixed hyperlipidemia Nasal septal deviation Neck mass Nicotine dependence, unspecified, in remission Obstructive sleep apnea (adult) (pediatric) resolved with weight loss sleep study Osteoporosis Other hemorrhoids Panniculitis Posterior cervical lymphadenopathy Primary pulmonary hypertension 2020 echo normal. 11.4.16 echo normal. seen on echo 02.19.12 ( mild) Right ankle sprain Thyroid disorder Surgical History Surgical History Gastric
--- NOTE | 2024-01-14 12:28 | PM.HPGS ---
History of Present Illness History of Present Illness Consent: Risks, benefits, and alternatives have been discussed and questions answered. Patient agrees to proceed with procedure. Chief complaint: GERD Narrative: Palma Freire is a 73 year old female here with symptomatic gerd on pantoprazole and famotidine, never had egd Review of Systems Review of Systems: All systems reviewed & are unremarkable except as noted in HPI and below PMFSH Past Medical History Medical History Abnormal colonoscopy 7.16.19: polyps/ repeat in 5 years Acute foreign body of right ear canal Allergic rhinitis Allergies Anxiety Arthritis At risk for fall due to comorbid condition Bipolar disorder, current episode depressed, mild Chronic bilateral low back pain with sciatica Chronic or old strain of lumbosacral spine Chronic otitis externa of right ear Coccygeal contusion Compression fracture of L2 acute 2.2021 Cystocele Degeneration of cervical intervertebral disc Diverticulosis Facial pressure Fall Foot drop, right Hx of sleep apnea Hyperlipidemia Hypertrophy of both inferior nasal turbinates Hypothyroid Left hip pain Mild intermittent asthma Mild persistent asthma, uncomplicated Mixed hyperlipidemia Nasal septal deviation Neck mass Nicotine dependence, unspecified, in remission Obstructive sleep apnea (adult) (pediatric) resolved with weight loss sleep study Osteoporosis Other hemorrhoids Panniculitis Posterior cervical lymphadenopathy Primary pulmonary hypertension 4. 2020 echo normal. 11.4.16 echo normal. seen on echo 6.21.12 ( mild) Right ankle sprain Thyroid disorder Surgical History Surgical History Gastric bypass status for obesity History of cataract surgery bilateral History of gastric bypass History of thumb surgery RT X2 History of tonsillectomy History of total knee arthroplasty Bilateral, LT X2, and RT X1 with a revision Family History Family History Father Diabetes mellitus Cancer Hypertension Heart disease Mother Hypertension Family history of elevated blood lipids Grandparent Heart disease Social History Social History Social History: Caffeine-coffee daily Smoking packs per day: 1 Smoking cigarettes per day: 20.0 Years smoked: 5 Smoking pack-years: 5.00 Smoking status: Former smoker Second hand tobacco smoke exposure: No Smoking end date: 09/01/84 Alcohol intake: current Alcohol use details: maybe 2 times a year Substance use: current Substance use type: marijuana Other substance usage details: rarely will have an edible Do You Feel Safe in your Home?: Yes Lack of Transportation: No Lack of Food: Never True Current Housing: I Have Housing Concerned About Future Housing: No Difficulty Paying Gas/Electric Bills: No Difficulty Paying for Meds: No Currently Unemployed: No Education: High School Diploma/GED Difficulty w/ Childcare or Family Care: No Living arrangements: with family Occupation/Education: retired Gender identity (if verbalized by the patient): Female Spiritual care concerns: No Meds Home Medications and Allergies Home Medications Medication Instructions Recorded Confirmed Type vit C 250 mg-vit E 90 mg-zinc 40 1 tablet PO BID 11/02/19 01/01/24 History mg-copper 1 [id number] capsule (PreserVision AREDS-2) duloxetine 60 mg capsule,delayed 60 mg PO DAILY 03/03/20 01/01/24 History release multivitamin with minerals 1 tablet PO DAILY 01/08/22 01/01/24 History (Hair,Skin and Nails tablet) aspirin 81 mg tablet,delayed 81 mg PO DAILY #90 tabs 06/13/22 01/01/24 Rx release (Adult Aspirin Regimen) ascorbic acid (vitamin C) 1,000 mg 1 g PO DAILY 07/02/22 01/01/24 History
[2024-01-14 12:39] VITALS: BP 100/46; PULSE 64; RESP 14; O2SAT 100
[2024-01-14 12:49] VITALS: BP 123/69; PULSE 61; RESP 14; O2SAT 100
[2024-01-14 12:59] VITALS: BP 116/71; PULSE 67; RESP 19; O2SAT 100
== END 2024-01-14 13:01 | disposition home or self-care (01) ==
PROVIDERS: PCP Family Medicine; Referring Provider Nurse Practitioner Family; Visit Provider Internal Medicine Gastroenterology
PROC: 0DJ08ZZ Inspection of Upper Intestinal Tract, Via Natural or Artificial Opening Endoscopic (ICD-10-PCS; CPT 43235; principal; 2024-01-14 13:30)
DX: K21.9 Gastro-esophageal reflux disease without esophagitis (principal); Z98.84 Bariatric surgery status; F31.9 Bipolar disorder, unspecified; E03.9 Hypothyroidism, unspecified; E78.2 Mixed hyperlipidemia; I27.0 Primary pulmonary hypertension; G47.33 Obstructive sleep apnea (adult) (pediatric); M81.0 Age-related osteoporosis without current pathological fracture; Z79.82 Long term (current) use of aspirin; Z87.891 Personal history of nicotine dependence; E66.9 Obesity, unspecified; Z68.36 Body mass index [BMI] 36.0-36.9, adult
CPT/HCPCS: 43239; 88305; J2704; J7120

== ENCOUNTER 2024-03-29 10:51 | Outpatient (CLI) | payer MEDICARE, SELFPAY ==
--- NOTE | ~2024-03-29 | XR_ITS ---
EXAMINATION: XR lg joint inject/asp w image DATE: 03/29/2024 11:34 INDICATION: Right shoulder pain. TECHNIQUE: A time-out was performed to verify the patient's name, date of , and procedure to b e performed. The procedure including the risks, benefits, and alternatives was discussed with the pat ient. Risks discussed included bleeding and infection. The patient understood the risks and agreed to proceed. The skin overlying the right glenohumeral joint was prepped and draped in usual sterile fa shion. Anesthetic was administered with 1% lidocaine subcutaneously. A 22 G needle was advanced und er fluoroscopic guidance into the joint. Subsequently, injectate consisting of 4 mL 1% lidocaine and 1 mL 80 mg/mL Depo-Medrol was instilled. The needle was removed and the entry site was cleaned and dressed. There were no immediate complications. Fluoroscopy exposure time was 0.1 minutes. The total number of images was 1. FINDINGS: Real-time fluoroscopy demonstrates the needle in the right glenohumeral joint. Patient's pa in prior to procedure:01/08. Patient's pain following the procedure: 12/09. IMPRESSION: 1. Fluoroscopy guided right glenohumeral joint injection of local anesthetic and steroid with decreas e in the patient's presenting pain. Reviewed, dictated and finalized at location A. IMPRESSION: 1. Fluoroscopy guided right glenohumeral joint injection of local anesthetic an d steroid with decrease in the patient's presenting pain.
== END 2024-03-29 10:52 | disposition home or self-care (01) ==
PROVIDERS: PCP Family Medicine; Visit Provider Orthopaedic Surgery
DX: M25.511 Pain in right shoulder (principal)
CPT/HCPCS: 20610; 77002; J1010

== ENCOUNTER 2024-05-25 13:40 | Outpatient (CLI) | payer MEDICARE, SELFPAY ==
--- NOTE | ~2024-05-25 | MM_ITS ---
EXAMINATION: MM screening rodriguez BI w mir HISTORY: Screening TECHNIQUE: Craniocaudal and mediolateral oblique 3-D tomosynthesis images were obtained and synthetic 2-D images were generated. CAD analysis was submitted and interpreted. COMPARISON: Comparison to multiple prior studies sequentially, with oldest reviewed study dated 12/09. BREAST PARENCHYMAL COMPOSITION: Not dense: There are scattered areas of fibroglandular density. FINDINGS: There is no evidence of suspicious mass, calcification, or architectural distortion to sugg est malignancy in either breast. There has been no suspicious interval change. IMPRESSION: 1. No mammographic evidence of malignancy. 2. Recommend routine screening mammography in one year. BI-RADS Category 2: Benign finding(s). Reviewed, dictated and finalized at location B.
== END 2024-05-25 13:41 | disposition home or self-care (01) ==
PROVIDERS: PCP Family Medicine; Visit Provider Nurse Practitioner Family
DX: Z12.31 Encounter for screening mammogram for malignant neoplasm of breast (principal)
CPT/HCPCS: 77063; 77067

== ENCOUNTER 2024-09-07 14:05 | Outpatient (CLI) | payer MEDICARE, SELFPAY ==
[2024-09-07 20:00] LABS: Basophils Absolute Auto 0.1 K/mm3 (0.0-0.1); Basophils Percent Auto 1.7 % (0.2-1.2); Eosinophils Absolute Auto 0.3 K/mm3 (0-0.3); Eosinophils Percent Auto 4.3 % (0-4.4); Hematocrit 38.6 % (37.0-47.0); Hemoglobin 12.4 g/dL (12.0-15.0); Immature Granulocyte Absolute 0.01 K/mm3 (0.00-0.031); Immature Granulocyte Percent A 0.2 % (0-0.5); Lymphocytes Absolute Auto 1.98 K/mm3 (0.9-3.2); Lymphocytes Percent Auto 30.5 % (18.3-44.2); Mean Corpuscular HGB Conc 32.1 g/dl (32-36); Mean Corpuscular Hemoglobin 27.7 pg (26-34); Mean Corpuscular Volume 86.2 fl (80-100); Mean Platelet Volume 9.8 fl (7.4-10.4); Monocytes Absolute Auto 0.5 K/mm3 (0.1-0.6); Monocytes Percent Auto 7.5 % (2.6-8.5); Neutrophils Absolute Auto 3.6 K/mm3 (1.3-6.7); Neutrophils Percent Auto 55.8 % (45.5-73.1); Platelet Count Result 362 k/mm3 (150-375); Red Blood Count 4.48 M/mm3 (4.2-5.4); Red Cell Distribution Width 17.1 % (11.5-14.5); White Blood Count 6.5 K/mm3 (4.5-10.0)
[2024-09-08 10:37] LABS: Rheumatoid Factor < 12.0 IU/ML (<12)
== END 2024-09-07 14:06 | disposition home or self-care (01) ==
PROVIDERS: PCP Family Medicine; Visit Provider Family Medicine
DX: R51.9 Headache, unspecified (principal)
CPT/HCPCS: 36415; 85025; 86038; 86039; 86430